=== PATIENT | male | born 1955 | race Caucasian/White ===

== ENCOUNTER 2020-02-28 14:32 | Emergency (ER) | payer OTHER, SELFPAY ==
[2020-02-28 14:37] VITALS: BP 117/89; PULSE 102; RESP 16; TEMP 36.8; O2SAT 100; BMI 27.9
[2020-02-28] MEDS: Lidocaine HCl 1 % MPF 5 ML VIAL SUBCUT ×3 (16:12→16:13)
--- NOTE | 2020-02-28 20:59 | ED.EXTPRO ---
HPI - Extremity Problem General Chief complaint: Extremity Injury, Upper Stated complaint: fell hand inj Time Seen by Provider: 02/28/20 15:28 History of Present Illness HPI Narrative: patient fell cutting his left hand, no other injury no other complaint, this happened 2 hours ago, pain is mild Related Data Previous Rx's Medication Instructions Recorded cyclobenzaprine 5 mg PO TID PRN #14 tab 02/28/20 Allergies Allergy/AdvReac Type Severity Reaction Status Date / Time No Known Allergies Allergy Verified 02/28/20 16:11 [No Known Allergies*] Review of Systems Review of Systems: there is no numbness weakness or paresthesias, there is no head injury no neck injury no head pain no neck pain PMFSH Past Medical History Source: nursing notes reviewed Medical History (Updated 02/28/20 @ 17:09 by KULDEEP Goodson) Back pain with history of spinal surgery High cholesterol Surgical History (Updated 02/28/20 @ 14:40 by Teresita Aguilar RN) Previous back surgery Social History Social History Advance Directives: No Advance Directives Information Provided: Yes Physical Exam Vital Signs and I&O and Narrative: Vital Signs and I&O: Vital Signs Temp 98.3 F 02/28/20 14:37 Pulse 102 H 02/28/20 14:37 Resp 16 02/28/20 14:37 BP 117/89 02/28/20 14:37 Pulse Ox 100 02/28/20 14:37 Intake & Output 02/28/20 02/28/20 02/29/20 06:59 18:59 06:59 Weight 88.451 kg Body Mass Index 27.9 general appearance is comfortable no distress, A&O x3, neck supple nontender respiratory no respiratory distress extremity exam the left ulnar aspect lateral aspect of the hand has a subcutaneous 3 cm laceration, there is full range of motion in all fingers and the hand, tendon function is intact as well as neurovascular, no swelling no deformities Other extremities are normal Neuro was a and O x3, no numbness no weakness Course Course Course Narrative: procedure note for left hand laceration that is 3 cm subcutaneous Cleansed and irrigated thoroughly with normal saline No foreign bodies were seen Anesthesia was 8 cc of 1% lidocaine The cut was approximated with a mixture of 4-0 and 5 0 sutures there were 4 4-0 sutures placed and there were 5 5.0 sutures placed The cut was well approximated with no complications and no bleeding Discharge Plan Discharge Clinical Impression: Laceration Laceration of hand Qualifiers: Encounter type: initial encounter Foreign body presence: unspecified Laterality: left Qualified Code(s): S61.412A - Laceration without foreign body of left hand, initial encounter Patient Disposition: Home, Self-Care Additional Instructions: stitches out 10-14 days Return any time for redness swelling fever red stripe up arm, any sign of infection, any concerns You got a tetanus shot Prescriptions: New cyclobenzaprine 5 mg tablet 5 mg PO TID PRN (Reason: muscle spasm) Qty: 14 RF: 0 Interventions: ED Discharge Assessment Last Done: 02/28/20 17:21 Discharge Date/Time: 02/28/20 17:23
== END 2020-02-28 17:23 | disposition home or self-care (01) ==
PROVIDERS: Emergency Provider Internal Medicine; PCP Family Medicine
DX: S61.412A Laceration without foreign body of left hand, initial encounter (principal); S60.512A Abrasion of left hand, initial encounter; M79.642 Pain in left hand; W26.9XXA Contact with unspecified sharp object(s), initial encounter; Y93.9 Activity, unspecified; Y92.009 Unspecified place in unspecified non-institutional (private) residence as the place of occurrence of the external cause; Z23 Encounter for immunization
CPT/HCPCS: 12002; 90471; 90700; 90715; 99283; 99284

== ENCOUNTER 2020-09-09 07:00 | Outpatient (REF) | payer MEDICARE, SELFPAY ==
[2020-09-09 08:32] LABS: Alanine Aminotransferase 19 U/L (0-40); Anion Gap 16 (12-20); Blood Urea Nitrogen 10 mg/dL (9-16); Carbon Dioxide 25 mmol/L (22-29); Chloride 102 mmol/L (96-108); Cholesterol 164 mg/dL; Estimated Glomerular Filt Rate > 60; Glucose Fasting 107 mg/dL (60-99); HDL Cholesterol 45 mg/dL; LDL Cholesterol Calculated 97 mg/dl; Potassium 4.2 mmol/L (3.3-5.1); Sodium 139 mmol/L (135-145); Triglycerides 113 mg/dL
== END 2020-09-09 07:01 | disposition home or self-care (01) ==
LOC: HO.LAB 07:00
PROVIDERS: PCP Family Medicine; Visit Provider Family Medicine
DX: E78.00 Pure hypercholesterolemia, unspecified (principal); I10 Essential (primary) hypertension; Z83.3 Family history of diabetes mellitus
CPT/HCPCS: 36415; 80051; 80061; 82550; 82565; 82947; 84460; 84520

== ENCOUNTER 2020-12-08 07:02 | Outpatient (REF) | payer MEDICARE, SELFPAY ==
[2020-12-08 09:13] LABS: Prostate Specific Antigen < 0.05 ng/mL (<0.05-4.0)
== END 2020-12-08 07:03 | disposition home or self-care (01) ==
LOC: HO.LAB 07:02
PROVIDERS: Absent Provider Urology; PCP Family Medicine; Visit Provider Family Medicine
DX: C61 Malignant neoplasm of prostate (principal)
CPT/HCPCS: 36415; 84153

== ENCOUNTER 2021-02-23 07:21 | Outpatient (REF) | payer MEDICARE, SELFPAY ==
[2021-02-23 08:17] LABS: Anion Gap 11 (12-20); Blood Urea Nitrogen 10 mg/dL (9-16); Carbon Dioxide 25 mmol/L (22-29); Chloride 105 mmol/L (96-108); Cholesterol 147 mg/dL; Estimated Glomerular Filt Rate > 60; HDL Cholesterol 48 mg/dL; LDL Cholesterol Calculated 81 mg/dl; Potassium 4.1 mmol/L (3.3-5.1); Sodium 137 mmol/L (135-145); Triglycerides 92 mg/dL
== END 2021-02-23 07:22 | disposition home or self-care (01) ==
LOC: HO.LAB 07:21
PROVIDERS: PCP Family Medicine; Visit Provider Family Medicine
DX: I10 Essential (primary) hypertension (principal); E78.00 Pure hypercholesterolemia, unspecified
CPT/HCPCS: 36415; 80051; 80061; 82565; 84520

== ENCOUNTER → 2021-04-12 08:49 | Outpatient (REF) | payer MEDICARE, SELFPAY ==
--- NOTE | 2021-04-12 09:00 | ECG_ITS ---
Test Reason : f34.1 Blood Pressure : / mmHG Vent. Rate : 076 BPM Atrial Rate : 076 BPM P-R Int : 184 ms QRS Dur : 098 ms QT Int : 394 ms P-R-T Axes : 072 068 069 degrees QTc Int : 443 ms Sinus rhythm with occasional Premature ventricular complexes Low voltage QRS Borderline ECG When compared with ECG of 14-MAY-2016 20:13, Premature ventricular complexes are now Present Heart rate has decreased Referred By: Twila Keller Electronically Signed By:JAMEY VOGEL MD
== END ==
LOC: HO.CARD 08:49
PROVIDERS: PCP Family Medicine; Visit Provider Psychiatry & Neurology Psychiatry
DX: F34.1 Dysthymic disorder (principal)
CPT/HCPCS: 93005

== ENCOUNTER 2021-06-17 09:08 | Outpatient (REF) | payer MEDICARE, SELFPAY ==
[2021-06-17 10:42] LABS: Prostate Specific Antigen < 0.05 ng/mL (<0.05-4.0)
== END 2021-06-17 09:09 | disposition home or self-care (01) ==
LOC: HO.LAB 09:08
PROVIDERS: PCP Family Medicine; Visit Provider Urology
DX: R97.20 Elevated prostate specific antigen [PSA] (principal); Z12.5 Encounter for screening for malignant neoplasm of prostate
CPT/HCPCS: 36415; 84153

== ENCOUNTER → 2021-07-06 11:10 | Outpatient (BNVA) | payer MEDICARE, SELFPAY | PROVIDERS: PCP Family Medicine; Visit Provider Urology | DX: N40.0 Benign prostatic hyperplasia without lower urinary tract symptoms (principal); N52.01 Erectile dysfunction due to arterial insufficiency; C61 Malignant neoplasm of prostate | CPT/HCPCS: 51798; 99212 ==

== ENCOUNTER 2021-08-23 07:09 | Outpatient (REF) | payer MEDICARE, SELFPAY ==
[2021-08-23 09:02] LABS: Alanine Aminotransferase 23 U/L (0-40); Anion Gap 14 (12-20); Blood Urea Nitrogen 11 mg/dL (9-16); Carbon Dioxide 25 mmol/L (22-29); Chloride 106 mmol/L (96-108); Estimated Glomerular Filt Rate > 60; Potassium 4.5 mmol/L (3.3-5.1); Sodium 140 mmol/L (135-145)
[2021-08-23 09:12] LABS: Free T4 (Free Thyroxine) 0.78 ng/dL (0.71-1.85)
== END 2021-08-23 07:10 | disposition home or self-care (01) ==
LOC: HO.LAB 07:09
PROVIDERS: PCP Family Medicine; Visit Provider Family Medicine
DX: I10 Essential (primary) hypertension (principal); E78.00 Pure hypercholesterolemia, unspecified; R00.0 Tachycardia, unspecified; Z79.899 Other long term (current) drug therapy
CPT/HCPCS: 36415; 80051; 82550; 82565; 84439; 84443; 84460; 84520

== ENCOUNTER 2021-10-05 07:00 | Outpatient (REF) | payer MEDICARE, SELFPAY ==
[2021-10-05 07:25] LABS: MANUAL DIFF FLAG NO
[2021-10-05 07:37] LABS: Basophils Absolute Auto 0.1 X10*3/uL (0.0-0.2); Basophils Percent Auto 0.8 % (0-2); Eosinophils Absolute Auto 0.4 X10*3/uL (0.0-0.4); Eosinophils Percent Auto 6.4 % (0-4); Hematocrit 43.3 % (42.0-52.0); Hemoglobin 14.3 g/dl (14.0-18.0); Imm Gran Abs Auto 0.03 X10*3/uL (0.00-0.03); Imm Gran Pct Auto 0.5 % (0.0-0.4); Lymphocytes Absolute Auto 1.5 X10*3/uL (1.2-4.9); Lymphocytes Percent Auto 23.5 % (20-40); Mean Corpuscular Hemoglobin 30.4 pg (27.0-33.0); Mean Corpuscular Volume 92.1 fL (80.0-98.0); Mean Platelet Volume 8.9 fL (9.4-12.4); Monocytes Absolute Auto 0.8 X10*3/uL (0.1-1.2); Neutrophils Absolute Auto 3.7 x10*3/uL (2.0-8.3); Neutrophils Percent Auto 56.8 % (45-73); Platelet Count 278 X10*3/uL (160-400); White Blood Count 6.5 X10*3/uL (4.8-10.8)
[2021-10-05 07:49] LABS: Estimated Average Glucose 117 mg/dL; Hemoglobin A1c % 5.7 %
[2021-10-05 08:01] LABS: Alanine Aminotransferase 23 U/L (0-40); Albumin Level 4.2 g/dL (3.5-5.0); Alkaline Phosphatase 75 U/L (39-117); Aspartate Amino Transferase 22 U/L (5-37); Bilirubin Direct < 0.2 mg/dL (0.0-0.5); Bilirubin Total 0.3 mg/dL (0.0-1.0); Glucose Fasting 109 mg/dL (60-99); Total Protein 6.4 g/dL (6.5-8.0)
[2021-10-05 08:24] LABS: Free T4 (Free Thyroxine) 0.73 ng/dL (0.71-1.85); Thyroid Stimulating Hormone 1.88 uIU/mL (0.32-4.0)
[2021-10-06 23:50] LABS: Triiodothyronine T3 Total 79 ng/dL (76-181)
== END 2021-10-05 07:01 | disposition home or self-care (01) ==
LOC: HO.LAB 07:00
PROVIDERS: PCP Family Medicine; Visit Provider Family Medicine
DX: R63.5 Abnormal weight gain (principal); R53.83 Other fatigue; I10 Essential (primary) hypertension
CPT/HCPCS: 36415; 80076; 82947; 83036; 84439; 84443; 84480; 85025

== ENCOUNTER 2021-12-28 07:12 | Outpatient (REF) | payer MEDICARE, SELFPAY ==
[2021-12-28 08:04] LABS: Prostate Specific Antigen 0.05 ng/mL (<0.05-4.0)
== END 2021-12-28 07:13 | disposition home or self-care (01) ==
LOC: HO.LAB 07:12
PROVIDERS: PCP Family Medicine; Visit Provider Urology
DX: Z12.5 Encounter for screening for malignant neoplasm of prostate (principal); C61 Malignant neoplasm of prostate
CPT/HCPCS: 36415; 84153

== ENCOUNTER → 2022-01-04 08:14 | Outpatient (BNVA) | payer MEDICARE, SELFPAY | PROVIDERS: PCP Family Medicine; Visit Provider Urology | DX: C61 Malignant neoplasm of prostate (principal); N52.01 Erectile dysfunction due to arterial insufficiency | CPT/HCPCS: 51798; 99212 ==

== ENCOUNTER 2022-02-14 07:04 | Outpatient (REF) | payer MEDICARE, SELFPAY ==
[2022-02-14 07:12] LABS: MANUAL DIFF FLAG NO
[2022-02-14 07:32] LABS: Basophils Absolute Auto 0.1 X10*3/uL (0.0-0.2); Basophils Percent Auto 0.4 % (0-2); Eosinophils Absolute Auto 0.4 X10*3/uL (0.0-0.4); Eosinophils Percent Auto 3.2 % (0-4); Hematocrit 43.8 % (42.0-52.0); Hemoglobin 15.1 g/dl (14.0-18.0); Imm Gran Abs Auto 0.06 X10*3/uL (0.00-0.03); Imm Gran Pct Auto 0.5 % (0.0-0.4); Lymphocytes Absolute Auto 1.4 X10*3/uL (1.2-4.9); Lymphocytes Percent Auto 11.3 % (20-40); Mean Corpuscular HGB Conc 34.5 g/dl (31.0-36.0); Mean Corpuscular Hemoglobin 32.1 pg (27.0-33.0); Mean Corpuscular Volume 93.2 fL (80.0-98.0); Mean Platelet Volume 9.3 fL (9.4-12.4); Monocytes Absolute Auto 0.9 X10*3/uL (0.1-1.2); Monocytes Percent Auto 7.1 % (2-11); Neutrophils Absolute Auto 9.9 x10*3/uL (2.0-8.3); Neutrophils Percent Auto 77.5 % (45-73); Platelet Count 275 X10*3/uL (160-400); Red Cell Distribution Width 12.8 % (11.0-16.0); White Blood Count 12.7 X10*3/uL (4.8-10.8)
[2022-02-14 07:56] LABS: Alanine Aminotransferase 20 U/L (0-40); Albumin Level 4.5 g/dL (3.5-5.0); Alkaline Phosphatase 75 U/L (39-117); Anion Gap 14 (12-20); Aspartate Amino Transferase 19 U/L (5-37); Bilirubin Total 0.7 mg/dL (0.0-1.0); Blood Urea Nitrogen 13 mg/dL (9-16); Calcium 9.3 mg/dL (8.4-10.2); Carbon Dioxide 23 mmol/L (22-29); Chloride 106 mmol/L (96-108); Estimated Glomerular Filt Rate > 60; Glucose Random 102 mg/dL (60-115); Potassium 4.4 mmol/L (3.3-5.1); Sodium 139 mmol/L (135-145); Total Protein 6.6 g/dL (6.5-8.0)
[2022-02-14 08:16] LABS: Free T4 (Free Thyroxine) 0.78 ng/dL (0.71-1.85)
== END 2022-02-14 07:05 | disposition home or self-care (01) ==
LOC: HO.LAB 07:04
PROVIDERS: PCP Student in an Organized Health Care Education/Training Program; Visit Provider Family Medicine
DX: R53.83 Other fatigue (principal)
CPT/HCPCS: 36415; 80053; 84439; 85025

== ENCOUNTER → 2022-03-14 10:50 | Outpatient (REF) | payer MEDICARE, SELFPAY ==
--- NOTE | 2022-03-14 10:55 | CA_ITS ---
Acquisition Time: 2022-03-14 11:01:53 Total Exercise Time: 00:09:00 Test Indications: Chest Pain Medications: Protocol: MILO Max HR: 153 BPM 99% of Pred: 154 BPM Max BP: 134/070 mmHG Max Work Load: 10.1 METS Exercise stress test with exercise 9 min of Milo protocol, achieving 94% MPHR, with mild sob, no chest discomfort, with isolated PVCs, with normotensive response to exercise, without EKG changes meeting criteria for ischemia. Echo images obtained by Tech at rest and immediately post peak exercise. Definity contrast used. Test reviewed with Dr Fernandez. Referred By: Reymundo Arana Overread By: HO BANKS
== END ==
LOC: HO.CARD 10:50
PROVIDERS: PCP Family Medicine; Visit Provider Family Medicine
DX: R07.9 Chest pain, unspecified (principal); I10 Essential (primary) hypertension; E78.00 Pure hypercholesterolemia, unspecified
CPT/HCPCS: 93350; Q9957

== ENCOUNTER 2022-05-02 07:23 | Outpatient (REF) | payer MEDICARE, SELFPAY ==
[2022-05-02 09:31] LABS: Prostate Specific Antigen < 0.10 ng/mL (<0.05-4.0)
== END 2022-05-02 07:24 | disposition home or self-care (01) ==
LOC: HO.LAB 07:23
PROVIDERS: PCP Family Medicine; Visit Provider Urology
DX: C61 Malignant neoplasm of prostate (principal)
CPT/HCPCS: 36415; 84153

== ENCOUNTER 2022-05-05 12:04 | Outpatient (REF) | payer MEDICARE, SELFPAY ==
--- NOTE | ~2022-05-05 | XR_ITS ---
EXAMINATION: XR SHOULDER, LEFT CLINICAL INFORMATION: Left shoulder pain for 3 months with limited range of motion COMPARISON: None TECHNIQUE: AP external rotation, Grashey, scapular Y, and axillary views of the left shoulder. FINDINGS: The bones and soft tissues are normal. No fracture. Glenohumeral and acromioclavicular alignment is anatomic with normal joint space. No abnormal soft tissue calcifications. XR/XR shoulder LT min 2V IMPRESSION: Unremarkable left shoulder exam
== END 2022-05-05 12:05 | disposition home or self-care (01) ==
LOC: HO.XRAY 12:04
PROVIDERS: PCP Family Medicine; Visit Provider Family Medicine
DX: M25.512 Pain in left shoulder (principal)
CPT/HCPCS: 73030

== ENCOUNTER → 2022-05-06 08:47 | Outpatient (BNVA) | payer MEDICARE, SELFPAY | PROVIDERS: PCP Family Medicine; Visit Provider Urology | DX: N52.01 Erectile dysfunction due to arterial insufficiency (principal); C61 Malignant neoplasm of prostate | CPT/HCPCS: 99212 ==

== ENCOUNTER 2022-05-12 18:56 | Outpatient (REF) | payer MEDICARE, SELFPAY ==
--- NOTE | ~2022-05-12 | MR_ITS ---
MR CERVICAL SPINE WITHOUT IV CONTRAST CLINICAL INFORMATION: Cervical arthritis. Left arm radiculopathy. COMPARISON: Cervical spine MRI 12/19/2019. TECHNIQUE: MRI of the cervical spine was obtained using routine sequences without contrast. FINDINGS: Straightening of the cervical lordosis. There is moderate to severe disc volume loss at C3-C4, C4-C5, C5-C6, C6-C7, and C7-T1 which is all progressed. Multilevel endplate osteophytes. Craniocervical junction is unremarkable. There Modic type I endplate signal changes at C3-C4, C4-C5, and C7-T1. There are no acute fractures. Cervical arterial flow voids are maintained. There are no cord signal changes. There are no significant extraspinal soft tissue findings. C2-C3: Disc osteophyte and ligamentum flavum thickening mildly narrow the central canal. Advanced uncovertebral joint hypertrophy and hypertrophic facet arthropathy result in similar moderate bilateral foraminal stenosis. C3-C4: Anterior subluxation. Disc osteophyte and ligamentum flavum thickening result in similar moderate to severe central canal stenosis. Advanced uncovertebral joint hypertrophy and hypertrophic facet arthropathy result in similar severe bilateral foraminal stenosis. C4-C5: Disc osteophyte and ligamentum flavum thickening result in similar moderate to severe central canal stenosis. Advanced uncovertebral joint hypertrophy and hypertrophic facet arthropathy result in similar severe left and moderate right foraminal stenosis. C5-C6: Disc osteophyte and ligamentum flavum thickening result in similar severe central canal stenosis. Advanced uncovertebral joint hypertrophy and hypertrophic facet arthropathy result in severe bilateral foraminal stenosis. C6-C7: Disc osteophyte eccentric to the left and ligamentum flavum thickening result in similar severe central canal stenosis. Advanced uncovertebral joint hypertrophy and hypertrophic facet arthropathy result in similar severe bilateral foraminal stenosis. C7-T1: Disc osteophyte mildly narrows the central canal. Advanced uncovertebral joint hypertrophy and hypertrophic facet arthropathy result in stable severe left and mild to moderate right foraminal stenosis. MR/MR cervical spine wo con IMPRESSION: Stable appearing advanced multilevel cervical spondylosis with advanced spondylitic changes resulting in unchanged moderate to severe central canal stenosis at C3-C4 and C4-C5 as well as severe central canal stenosis at C5-C6 and C6-C7 with mass effect on the cervical spinal cord at all these levels. Advanced spondylitic changes also result in similar varying degrees of moderate to severe foraminal stenosis throughout the cervical spine as discussed above. Multilevel degenerative endplate signal changes, greatest at C7-T1 where there are Modic type I endplate signal changes.
== END 2022-05-12 18:57 | disposition home or self-care (01) ==
LOC: HO.MRI 18:56
PROVIDERS: Visit Provider Family Medicine
DX: M46.92 Unspecified inflammatory spondylopathy, cervical region (principal); M79.622 Pain in left upper arm
CPT/HCPCS: 72141

== ENCOUNTER 2022-09-20 07:10 | Outpatient (REF) | payer MEDICARE, SELFPAY ==
[2022-09-20 07:40] LABS: Alanine Aminotransferase 28 U/L (0-40); Anion Gap 12 (12-20); Aspartate Amino Transferase 29 U/L (5-37); Blood Urea Nitrogen 8 mg/dL (9-16); Carbon Dioxide 21 mmol/L (22-29); Chloride 110 mmol/L (96-108); Estimated Glomerular Filt Rate > 60; Potassium 4.4 mmol/L (3.3-5.1); Sodium 139 mmol/L (135-145)
== END 2022-09-20 07:11 | disposition home or self-care (01) ==
LOC: HO.LAB 07:10
PROVIDERS: PCP Family Medicine; Visit Provider Family Medicine
DX: I10 Essential (primary) hypertension (principal); E78.00 Pure hypercholesterolemia, unspecified; Z79.899 Other long term (current) drug therapy
CPT/HCPCS: 36415; 80051; 82550; 82565; 84450; 84460; 84520

== ENCOUNTER 2022-11-01 06:54 | Outpatient (REF) | payer MEDICARE, SELFPAY ==
[2022-11-01 08:17] LABS: Prostate Specific Antigen 0.12 ng/mL (<0.05-4.0)
== END 2022-11-01 06:55 | disposition home or self-care (01) ==
LOC: HO.LAB 06:54
PROVIDERS: PCP Family Medicine; Visit Provider Urology
DX: Z12.5 Encounter for screening for malignant neoplasm of prostate (principal); C61 Malignant neoplasm of prostate
CPT/HCPCS: 36415; 84153

== ENCOUNTER → 2022-11-04 08:53 | Outpatient (BNVA) | payer MEDICARE, SELFPAY | PROVIDERS: PCP Family Medicine; Visit Provider Urology | DX: C61 Malignant neoplasm of prostate (principal); R97.21 Rising PSA following treatment for malignant neoplasm of prostate | CPT/HCPCS: 99212 ==

== ENCOUNTER 2022-12-23 09:39 | Outpatient (REF) | payer MEDICARE, SELFPAY ==
[2022-12-23 10:57] LABS: MANUAL DIFF FLAG NO
[2022-12-23 11:01] LABS: Basophils Percent Auto 0.6 % (0-2); Eosinophils Absolute Auto 0.3 X10*3/uL (0.0-0.4); Eosinophils Percent Auto 4.8 % (0-4); Hematocrit 44.1 % (42.0-52.0); Hemoglobin 14.7 g/dl (14.0-18.0); Imm Gran Abs Auto 0.02 X10*3/uL (0.00-0.03); Imm Gran Pct Auto 0.3 % (0.0-0.4); Lymphocytes Absolute Auto 1.5 X10*3/uL (1.2-4.9); Lymphocytes Percent Auto 22.5 % (20-40); Mean Corpuscular HGB Conc 33.3 g/dl (31.0-36.0); Mean Corpuscular Hemoglobin 30.8 pg (27.0-33.0); Mean Corpuscular Volume 92.3 fL (80.0-98.0); Mean Platelet Volume 9.1 fL (9.4-12.4); Monocytes Absolute Auto 0.7 X10*3/uL (0.1-1.2); Monocytes Percent Auto 10.7 % (2-11); Neutrophils Percent Auto 61.1 % (45-73); Platelet Count 300 X10*3/uL (160-400); Red Blood Count 4.78 X10*6/uL (4.60-5.80); Red Cell Distribution Width 12.6 % (11.0-16.0); White Blood Count 6.6 X10*3/uL (4.8-10.8)
[2022-12-23 11:39] LABS: Erythrocyte Sedimentation Rate 2 MM/HR (0-15)
[2022-12-23 22:31] LABS: Alanine Aminotransferase 25 U/L (0-40); Albumin Level 4.3 g/dL (3.5-5.0); Alkaline Phosphatase 75 U/L (39-117); Anion Gap 14 (12-20); Aspartate Amino Transferase 30 U/L (5-37); Bilirubin Total 0.4 mg/dL (0.0-1.0); Blood Urea Nitrogen 11 mg/dL (9-16); Calcium 8.9 mg/dL (8.4-10.2); Carbon Dioxide 21 mmol/L (22-29); Chloride 107 mmol/L (96-108); Estimated Glomerular Filt Rate > 60; Free T4 (Free Thyroxine) 0.71 ng/dL (0.71-1.85); Glucose Random 104 mg/dL (60-115); Potassium 4.4 mmol/L (3.3-5.1); Sodium 138 mmol/L (135-145); Thyroid Stimulating Hormone 0.98 uIU/mL (0.32-4.0); Total Protein 6.7 g/dL (6.5-8.0)
== END 2022-12-23 09:40 | disposition home or self-care (01) ==
LOC: HO.10HDL 09:39
PROVIDERS: Visit Provider Family Medicine
DX: R53.83 Other fatigue (principal); E78.00 Pure hypercholesterolemia, unspecified; Z79.899 Other long term (current) drug therapy
CPT/HCPCS: 36415; 80053; 82550; 84439; 84443; 85025; 85652

== ENCOUNTER 2023-01-18 08:33 | Outpatient (REF) | payer MEDICARE, SELFPAY ==
--- NOTE | ~2023-01-18 | US_ITS ---
EXAMINATION: US ABDOMEN COMPLETE CLINICAL INFORMATION: Left upper quadrant and flank pain. Evaluate for nephrolithiasis. COMPARISON: CT abdomen and pelvis 02/17/2018. Ultrasound abdomen 08/23/2013. TECHNIQUE: Real-time imaging of the abdominal viscera. FINDINGS: PANCREAS: Normal. ABDOMINAL AORTA: The proximal, mid, and distal segments are normal in caliber. INFERIOR VENA CAVA: Visualized portions are normal. LIVER: Normal. The liver is normal in size. The liver contour is normal. Parenchymal echogenicity is normal. No focal hepatic lesion. There is no intrahepatic biliary duct dilatation seen. GALLBLADDER: Normal. The gallbladder is physiologically distended without evidence of stones, sludge, polyps, wall thickening or pericholecystic fluid. COMMON BILE DUCT: Normal in caliber measuring 0.4 cm in diameter. RIGHT KIDNEY: Normal. No hydronephrosis. No renal calculi or focal parenchymal lesions. The kidney measures 11.3 cm in maximum dimension. LEFT KIDNEY: Normal. No hydronephrosis. No renal calculi or focal parenchymal lesions. The kidney measures 11.6 cm in maximum dimension. SPLEEN: Normal. The spleen measures 10.6 cm in maximum dimension. FREE FLUID: None. US/US abdomen complete IMPRESSION: Unremarkable abdomen ultrasound examination.
== END 2023-01-18 08:34 | disposition home or self-care (01) ==
LOC: HO.US 08:33
PROVIDERS: PCP Family Medicine; Visit Provider Family Medicine
DX: R10.12 Left upper quadrant pain (principal); M54.50 Low back pain, unspecified
CPT/HCPCS: 76700

== ENCOUNTER 2023-02-22 07:17 | Outpatient (REF) | payer MEDICARE, SELFPAY ==
[2023-02-22 08:23] LABS: Prostate Specific Antigen 0.17 ng/mL (<0.05-4.0)
== END 2023-02-22 07:18 | disposition home or self-care (01) ==
LOC: HO.LAB 07:17
PROVIDERS: PCP Family Medicine; Visit Provider Urology
DX: C61 Malignant neoplasm of prostate (principal); Z12.5 Encounter for screening for malignant neoplasm of prostate
CPT/HCPCS: 36415; 84153

== ENCOUNTER 2023-03-10 08:50 | Outpatient (AMB) | payer MEDICARE, SELFPAY ==
--- NOTE | 2023-03-10 08:50 | MHC.OFFVIS ---
Intake Intake Visit Reasons: 4m/PSA(set) Intake Note: Patient is Present for Telephone Follow Up PSA Urology Med: None Antibiotic Allergy: None Blood Thinner: None Pharamcy: [employer] Required: No Allergies No Known Allergies [No Known Allergies*] Allergy (Verified 03/10/23 08:53) Medication List - Last Reconciled 03/10/23 by Mckinley Siddiqui MD atorvastatin 20 mg PO BEDTIME bupropion HCl 300 mg PO QAM cyclobenzaprine 5 mg PO TID PRN diltiazem HCl ER 120 mg PO DAILY escitalopram oxalate 20 mg PO DAILY gabapentin 300 mg PO TID lorazepam 1 mg PO TID quetiapine 300 mg PO BEDTIME zolpidem ER 12.5 mg PO BEDTIME HPI HPI Comments History of Present Illness Details Rianna is a pleasant male. He is a patient Dr. Arana. He is seen for the following urologic conditions - prostate cancer - erectile dysfunction Telemedicine Evaluation 15 min Consultation [facility] Sep[facility] Video attempted Question of PSA recurrence Discussed potential pathway should further testing confirm PSA recurrence Recommend PET-CT Prostate cancer [place] 3 + [address] [facility] [address] Pruitt Original biopsy [place] 3 + 4 with 3 biopsies on left 90% volume - - pT1c, Grade Group 3 Initial therapy robotic prostatectomy [facility] 2018 PSA 06/12 <0.1, 01/10 0.05, 05/12 <0.1, 11/11 0.12, 03/13 0.17 Erectile dysfunction Post prostatectomy Small amount of activity Trial daily Cialis to maximize potential recovery No current partner PFSH Medical History Depression Anxiety Nocturia Hyperlipidemia GERD (gastroesophageal reflux disease) Benign prostatic hyperplasia with lower urinary tract symptoms Back pain with history of spinal surgery High cholesterol Surgical History History of surgery Previous back surgery Review of Systems Const All systems reviewed & are unremarkable except as noted in HPI and below Reports no additional complaints Resp Reports no additional complaints GI Reports no additional complaints Reports as per HPI Musc Reports no additional complaints Physical Exam Telemedicine evaluation Appropriate responses Regular breathing rate and rhythm HEENT Head: Yes normal to inspection Ears: hearing grossly normal bilaterally Eyes General: appearance normal, both eyes and all related structures Neck Neck: Yes normal visual inspection Chest Chest palpation & inspection: normal inspection of the chest Resp Effort & Inspection: normal respiratory effort and able to speak in complete sentences Assessment & Plan Assessment & Plan (1) Rising PSA following treatment for malignant neoplasm of prostate: Code(s): R97.21 - Rising PSA following treatment for malignant neoplasm of prostate Plan PSA recurrence Organized staging Will possibly need salvage radiation 3-4 week follow-up to assess PET-CT Orders: Orders Creatinine Today R39.15 - Urgency of urination, R97.21 - Rising PSA following treatment for malignant neoplasm of prostate Blood Urea Nitrogen Today R39.15 - Urgency of urination, R97.21 - Rising PSA following treatment for malignant neoplasm of prostate PET CT fusion skull to thigh Today C61 - Malignant neoplasm of prostate, R97.21 - Rising PSA following treatment for malignant neoplasm of prostate Patient Instructions: Imaging studies, laboratory and physical exam results were discussed and reviewed in detail. No major barriers to patient understanding were identified. An opportunity to ask questions regarding the treatment plan was provided. All questions were answered. The patient expressed understanding and agreement with the above treatment plan. The patient is aware they should contact our office by phone for worsening of their current condition or the appearance of new urologic symptoms. Compliance is encouraged with any medications and followup testing that is ordered. It is a privilege to participate in the urologic care of your patient. If you have any questions or concerns regarding treatment for the above conditions, or other urologic issues, please do not hesitate to contact me. The office telephone contact is [phone]. This note is constructed using voice recognition software. While every effort has been made to ensure accuracy able bodied watchman errors may have been included. Yours sincerely, Dr Mckinley Siddiqui MD, [facility] - Urology Providers of Expert, Compassionate Care for the Genitourinary System Telehealth Telehealth Location of provider rendering services: practice address Location of patient: address on file Patient Identification confirmed using: Name, : Yes Telehealth method: video Patient verbally consented to treatment: Yes Patient verbally consented to billing insurance company: Yes Patient informed of any privacy concerns related to visit: Yes Coding Level of Care Code Tele Est Pt Level 3 (45742) Diagnoses Rising PSA following treatment for malignant neoplasm of prostate R97.21
== END 2023-03-10 09:35 | disposition home or self-care (01) ==
LOC: HO.HUSH 08:50
PROVIDERS: PCP Family Medicine; Visit Provider Urology
DX: R97.21 Rising PSA following treatment for malignant neoplasm of prostate (principal)
CPT/HCPCS: 99213

== ENCOUNTER → 2023-03-10 08:50 | Outpatient (BNVA) | payer MEDICARE, SELFPAY | PROVIDERS: PCP Family Medicine; Visit Provider Urology ==

== ENCOUNTER 2023-04-19 07:16 | Outpatient (REF) | payer MEDICARE, SELFPAY | END 2023-04-19 07:17 | disposition home or self-care (01) | LOC: HO.LAB 07:16 | PROVIDERS: PCP Family Medicine; Visit Provider Family Medicine | DX: E78.00 Pure hypercholesterolemia, unspecified (principal); Z79.899 Other long term (current) drug therapy | CPT/HCPCS: 36415; 82550 ==

== ENCOUNTER 2023-05-04 12:49 | Outpatient (AMB) | payer MEDICARE, SELFPAY ==
--- NOTE | 2023-05-04 13:06 | A.OFFVIS_ITS ---
Intake Intake Visit Reasons: 4w/Pet-CT Intake Note: Patient is Present for Follow Up PET CT Urology Medication: None Antibiotic Allergies: None Allergies No Known Allergies [No Known Allergies*] Allergy (Verified 03/10/23 08:53) Medication List - Last Reconciled 05/04/23 by Mckinley Siddiqui MD atorvastatin 20 mg PO BEDTIME bupropion HCl 300 mg PO QAM cyclobenzaprine 5 mg PO TID PRN diltiazem HCl ER 120 mg PO DAILY escitalopram oxalate 20 mg PO DAILY gabapentin 300 mg PO TID lorazepam 1 mg PO TID quetiapine 300 mg PO BEDTIME zolpidem ER 12.5 mg PO BEDTIME HPI HPI Comments History of Present Illness Details Rianna is a pleasant male. He is a patient Dr. Arana. He is seen for the following urologic conditions - prostate cancer - erectile dysfunction Discussed imaging findings At this point will continue to follow PSA every 4 months Understands may have salvage radiation when PSA between 0.2 and 0.4 Imaging - 04/13 PET-CT - no evidence of recurren ce Prostate cancer [place] 3 + 4 robotic prostatectomy [facility] [address] Pruitt Original biopsy [place] 3 + 4 with 3 biopsies on left 90% volume - - pT1c, Grade Group 3 Initial therapy robotic prostatectomy [facility] 2018 PSA 06/12 <0.1, 01/10 0.05, 05/12 <0.1, 11/11 0.12, 03/13 0.17 Erectile dysfunction Post prostatectomy Small amount of activity Trial daily Cialis to maximize potential recovery No current partner PFSH Medical History Depression Anxiety Nocturia Hyperlipidemia GERD (gastroesophageal reflux disease) Benign prostatic hyperplasia with lower urinary tract symptoms Back pain with history of spinal surgery High cholesterol Surgical History History of surgery Previous back surgery Review of Systems Const Denies chills and Denies fever(s) Card Reports no additional complaints and Denies syncope Resp Denies cough GI Denies abdominal pain and Denies heartburn Reports as per HPI and Denies change in libido Neuro Denies syncope Psych Denies change in libido Endo Denies change in libido Physical Exam Const General: cooperative, healthy appearing, comfortable and no acute distress Orientation/consciousness: patient oriented x3 HEENT Face and sinus: Yes normal facial exam Mouth: moist mucous membranes Neck Neck: Yes normal visual inspection, Yes full ROM and Yes trachea midline Chest Chest palpation & inspection: normal inspection of the chest Resp Effort & Inspection: normal respiratory effort, able to speak in complete sentences and no respiratory distress GI Inspection: Yes normal to inspection Back/Spine/Pelvis Cervical Spine: normal cervical lordosis Thoracic/Lumbar Spine: thoracic and lumbar spine normal to inspection Skin General skin exam: no rashes or lesions noted Neuro General: patient oriented x3, gait normal, tone normal and moves all extremities Extrem General: Yes normal to inspection and Yes capillary refill normal Assessment & Plan Assessment & Plan (1) Rising PSA following treatment for malignant neoplasm of prostate: Code(s): R97.21 - Rising PSA following treatment for malignant neoplasm of prostate Plan Four month follow-up PSA Orders: Orders Prostate Specific Antigen 4 Months R97.21 - Rising PSA following treatment for malignant neoplasm of prostate Patient Instructions: Imaging studies, laboratory and physical exam results were discussed and reviewed in detail. No major barriers to patient understanding were identified. An opportunity to ask questions regarding the treatment plan was provided. All questions were answered. The patient expressed understanding and agreement with the above treatment plan. The patient is aware they should contact our office by phone for worsening of their current condition or the appearance of new urologic symptoms. Compliance is encouraged with any medications and followup testing that is ordered. It is a privilege to participate in the urologic care of your patient. If you have any questions or concerns regarding treatment for the above conditions, or other urologic issues, please do not hesitate to contact me. The office telephone contact is [phone]. This note is constructed using voice recognition software. While every effort has been made to ensure accuracy stripping machine operator errors may have been included. Yours sincerely, Dr Mckinley Siddiqui MD, [facility] - Urology Providers of Expert, Compassionate Care for the Genitourinary System Coding Level of Care Code Est Pt Level 3 (00739) Diagnoses Rising PSA following treatment for malignant neoplasm of prostate R97.21
== END 2023-05-04 13:18 | disposition home or self-care (01) ==
PROVIDERS: PCP Family Medicine; Visit Provider Urology
DX: R97.21 Rising PSA following treatment for malignant neoplasm of prostate (principal)
CPT/HCPCS: 99213

== ENCOUNTER → 2023-05-04 12:49 | Outpatient (BNVA) | payer MEDICARE, SELFPAY | PROVIDERS: PCP Family Medicine; Visit Provider Urology | DX: R97.21 Rising PSA following treatment for malignant neoplasm of prostate (principal) | CPT/HCPCS: 99212 ==

== ENCOUNTER 2023-08-09 07:02 | Outpatient (REF) | payer MEDICARE, SELFPAY ==
[2023-08-09 07:47] LABS: Anion Gap 12 (12-20); Blood Urea Nitrogen 7 mg/dL (9-16); Carbon Dioxide 26 mmol/L (22-29); Chloride 105 mmol/L (96-108); Estimated Glomerular Filt Rate > 60; Potassium 4.2 mmol/L (3.3-5.1); Sodium 139 mmol/L (135-145)
== END 2023-08-09 07:03 | disposition home or self-care (01) ==
LOC: HO.LAB 07:02
PROVIDERS: PCP Family Medicine; Visit Provider Family Medicine
DX: I10 Essential (primary) hypertension (principal); M79.10 Myalgia, unspecified site
CPT/HCPCS: 36415; 80051; 82550; 82565; 84520

== ENCOUNTER 2023-08-10 07:09 | Outpatient (REF) | payer MEDICARE, SELFPAY ==
[2023-08-16 14:19] LABS: Aldolase 7.2 U/L (<=8.1)
== END 2023-08-10 07:10 | disposition home or self-care (01) ==
LOC: HO.LAB 07:09
PROVIDERS: PCP Family Medicine; Visit Provider Family Medicine
DX: M79.10 Myalgia, unspecified site (principal); I10 Essential (primary) hypertension
CPT/HCPCS: 36415; 82085

== ENCOUNTER 2023-08-23 07:14 | Outpatient (REF) | payer MEDICARE, SELFPAY ==
[2023-08-23 09:14] LABS: Blood Urea Nitrogen 8 mg/dL (9-16); Estimated Glomerular Filt Rate > 60
== END 2023-08-23 07:15 | disposition home or self-care (01) ==
LOC: HO.LAB 07:14
PROVIDERS: PCP Family Medicine; Visit Provider Urology
DX: R39.15 Urgency of urination (principal); R97.21 Rising PSA following treatment for malignant neoplasm of prostate; Z12.5 Encounter for screening for malignant neoplasm of prostate
CPT/HCPCS: 36415; 82565; 84153; 84520

== ENCOUNTER 2023-08-29 10:17 | Outpatient (AMB) | payer MEDICARE, SELFPAY ==
--- NOTE | 2023-08-29 10:19 | MHC.OFFVIS ---
Intake Intake Visit Reasons: PSA Follow up(set)Confirmed Intake Note: Patient is Present for Telephone Follow Up For Urology Med: None Antibiotic Allergy: None Blood Thinner: None Allergies No Known Allergies [No Known Allergies*] Allergy (Verified 08/29/23 10:20) Medication List - Last Reconciled 08/29/23 by Mckinley Siddiqui MD atorvastatin 20 mg PO BEDTIME bupropion HCl XL 300 mg PO QAM cyclobenzaprine 5 mg PO TID PRN diltiazem HCl ER 120 mg PO DAILY escitalopram oxalate 20 mg PO DAILY gabapentin 300 mg PO TID lorazepam 1 mg PO TID quetiapine 300 mg PO BEDTIME zolpidem ER 12.5 mg PO BEDTIME HPI HPI Comments History of Present Illness Details Rianna is a pleasant male. He is a patient Dr. Arana. He is seen for the following urologic conditions - prostate cancer - delayed failure PSA rise - erectile dysfunction Telemedicine Evaluation 15 min Consultation [facility] Sep[facility] Video Continued slow rise in PSA to 0.2 Will refer to radiation oncology for assessment of salvage radiation Given [place] 3 + 4 disease would likely benefit short term GnRH manipulation Has window over next 6 months to initiate Imaging - 04/13 [facility] - PET-CT - no evidence of recurrence Prostate cancer [place] 3 + [address] [facility] [address] Pruitt Original biopsy [place] 3 + 4 with 3 biopsies on left 90% volume - - pT1c, Grade Group 3 Initial therapy robotic prostatectomy [facility] 2018 PSA 06/12 <0.1, 01/10 0.05, 05/12 <0.1, 11/11 0.12, 03/13 0.17, 09/12 0.2 Erectile dysfunction Post prostatectomy Small amount of activity Trial daily Cialis to maximize potential recovery No current partner PFSH Medical History Depression Anxiety Nocturia Hyperlipidemia GERD (gastroesophageal reflux disease) Benign prostatic hyperplasia with lower urinary tract symptoms Back pain with history of spinal surgery High cholesterol Surgical History History of surgery Previous back surgery Review of Systems Const All systems reviewed & are unremarkable except as noted in HPI and below Reports no additional complaints Resp Reports no additional complaints GI Reports no additional complaints Reports as per HPI Musc Reports no additional complaints Physical Exam Telemedicine evaluation Appropriate responses Regular breathing rate and rhythm HEENT Head: Yes normal to inspection Ears: hearing grossly normal bilaterally Eyes General: appearance normal, both eyes and all related structures Neck Neck: Yes normal visual inspection Chest Chest palpation & inspection: normal inspection of the chest Resp Effort & Inspection: normal respiratory effort and able to speak in complete sentences Assessment & Plan Assessment & Plan (1) Rising PSA following treatment for malignant neoplasm of prostate: Code(s): R97.21 - Rising PSA following treatment for malignant neoplasm of prostate (2) Prostate cancer: Comment: [address] [facility] Code(s): C61 - Malignant neoplasm of prostate Plan Refer radiation oncology with 6 week follow-up Orders: Referrals Radiation Oncology Referral R97.21 - Rising PSA following treatment for malignant neoplasm of prostate Patient Instructions: Imaging studies, laboratory and physical exam results were discussed and reviewed in detail. No major barriers to patient understanding were identified. An opportunity to ask questions regarding the treatment plan was provided. All questions were answered. The patient expressed understanding and agreement with the above treatment plan. The patient is aware they should contact our office by phone for worsening of their current condition or the appearance of new urologic symptoms. Compliance is encouraged with any medications and followup testing that is ordered. It is a privilege to participate in the urologic care of your patient. If you have any questions or concerns regarding treatment for the above conditions, or other urologic issues, please do not hesitate to contact me. The office telephone contact is [phone]. This note is constructed using voice recognition software. While every effort has been made to ensure accuracy shelf filler errors may have been included. Yours sincerely, Dr Mckinley Siddiqui MD, [facility] - Urology Providers of Expert, Compassionate Care for the Genitourinary System Telehealth Telehealth Location of provider rendering services: practice address Location of patient: address on file Patient Identification confirmed using: Name, : Yes Telehealth method: video Patient verbally consented to treatment: Yes Patient verbally consented to billing insurance company: Yes Patient informed of any privacy concerns related to visit: Yes Coding Level of Care Code Tele Est Pt Level 3 (44188) Diagnoses Rising PSA following treatment for malignant neoplasm of prostate R97.21 Prostate cancer C61
== END 2023-08-29 10:57 | disposition home or self-care (01) ==
LOC: HO.HUSH 10:17
PROVIDERS: PCP Family Medicine; Visit Provider Urology
DX: C61 Malignant neoplasm of prostate (principal); R97.21 Rising PSA following treatment for malignant neoplasm of prostate
CPT/HCPCS: 99213

== ENCOUNTER → 2023-08-29 10:17 | Outpatient (BNVA) | payer MEDICARE, SELFPAY | PROVIDERS: PCP Family Medicine; Visit Provider Urology ==

== ENCOUNTER 2023-10-10 11:31 | Outpatient (AMB) | payer MEDICARE, SELFPAY ==
--- NOTE | 2023-10-10 11:38 | A.OFFVIS_ITS ---
Intake Visit Reasons: 6w follow up(Radiation/Oncology) Allergies No Known Allergies [No Known Allergies*] Allergy (Verified 08/29/23 10:20) HPI Comments Details: Rianna is a pleasant male. He is a patient Dr. Arana. He is seen for the following urologic conditions - prostate cancer - delayed failure PSA rise - erectile dysfunction Telemedicine Evaluation 15 min Consultation DoximLikeAndy Sepideh Video Completed radiation oncology referral with Dr. Montes De Oca Plan for salvage external beam Will administer a single GnRH six-month depot Continued slow rise in PSA to 0.2 Given [place] 3 + 4 disease would likely benefit short term GnRH manipulation Imaging - 04/13 [facility] - PET-CT - no evidence of recurrence Prostate cancer [place] 3 + 4 robotic prostatectomy [facility] [address] Pruitt Original biopsy [place] 3 + 4 with 3 biopsies on left 90% volume - - pT1c, Grade Group 3 Initial therapy robotic prostatectomy [facility] 2018 PSA 06/12 <0.1, 01/10 0.05, 05/12 <0.1, 11/11 0.12, 03/13 0.17, 09/12 0.2 Imaging - 04/13 [facility] - PET-CT - no evidence of recurrence Erectile dysfunction Post prostatectomy Small amount of activity Trial daily Cialis to maximize potential recovery No current partner PFSH Medical History Depression Anxiety Nocturia Hyperlipidemia GERD (gastroesophageal reflux disease) Benign prostatic hyperplasia with lower urinary tract symptoms Back pain with history of spinal surgery High cholesterol Surgical History History of surgery Previous back surgery Review of Systems Const All systems reviewed & are unremarkable except as noted in HPI and below Reports no additional complaints Resp Reports no additional complaints GI Reports no additional complaints Reports as per HPI Musc Reports no additional complaints Physical Exam Telemedicine evaluation Appropriate responses Regular breathing rate and rhythm HEENT Head: Yes normal to inspection Ears: hearing grossly normal bilaterally Eyes General: appearance normal, both eyes and all related structures Neck Neck: Yes normal visual inspection Chest Chest palpation & inspection: normal inspection of the chest Resp Effort & Inspection: normal respiratory effort and able to speak in complete sentences Telehealth Telehealth Telehealth Platform: Education Everytime Location of provider rendering services: practice address Location of patient: address on file Patient Identification confirmed using: Name, : Yes Telehealth method: video Patient verbally consented to treatment: Yes Patient verbally consented to billing insurance company: Yes Patient informed of any privacy concerns related to visit: Yes Minutes spent on Phone/Video with Pt.: 15 Assessment & Plan Assessment & Plan (1) Rising PSA following treatment for malignant neoplasm of prostate: Code(s): R97.21 - Rising PSA following treatment for malignant neoplasm of prostate Category: Medical (2) Cancer of prostate with intermediate recurrence risk, stage T2B-C or [place] 7 or prostate-specific antigen (PSA) 10-20: Code(s): C61 - Malignant neoplasm of prostate Category: Medical Plan GnRH injection Three-month follow-up Patient Instructions: Imaging studies, laboratory and physical exam results were discussed and reviewed in detail. No major barriers to patient understanding were identified. An opportunity to ask questions regarding the treatment plan was provided. All questions were answered. The patient expressed understanding and agreement with the above treatment plan. The patient is aware they should contact our office by phone for worsening of their current condition or the appearance of new urologic symptoms. Compliance is encouraged with any medications and followup testing that is ordered. It is a privilege to participate in the urologic care of your patient. If you have any questions or concerns regarding treatment for the above conditions, or other urologic issues, please do not hesitate to contact me. The office telephone contact is [phone]. This note is constructed using voice recognition software. While every effort has been made to ensure accuracy tutoring manager errors may have been included. Yours sincerely, Dr Mckinley Siddiqui MD, CAMELIA [facility] - Urology Providers of Expert, Compassionate Care for the Genitourinary System Coding Level of Care Code Tele Est Pt Level 4 (31791) Complex EM visit Add On G2211 Diagnoses Rising PSA following treatment for malignant neoplasm of prostate R97.21 Cancer of prostate with intermediate recurrence risk, stage T2B-C or [place] 7 or prostate-specific antigen (PSA) 10-20 C61
== END 2023-10-10 12:08 | disposition home or self-care (01) ==
LOC: HO.HUSH 11:31
PROVIDERS: PCP Family Medicine; Visit Provider Urology
DX: R97.21 Rising PSA following treatment for malignant neoplasm of prostate (principal); C61 Malignant neoplasm of prostate
CPT/HCPCS: 99214; G2211

== ENCOUNTER → 2023-10-10 11:31 | Outpatient (BNVA) | payer MEDICARE, SELFPAY | PROVIDERS: PCP Family Medicine; Visit Provider Urology ==

== ENCOUNTER 2023-10-25 13:19 | Outpatient (AMB) | payer MEDICARE, SELFPAY ==
--- NOTE | 2023-10-25 13:50 | AM.OFFVISNUR ---
Intake Intake Visit Reasons: GnRH Allergies No Known Allergies [No Known Allergies*] Allergy (Verified 08/29/23 10:20) Office Meds Eligard (6 month) 45 mg (6 month) subcutaneous syringe Performing Provider: Mckinley Siddiqui MD [facility] Administered by: Dakota Hall LPN on 10/25/23 13:50 Dose Route Admin Location Dispensed Lot Number Expiration Date [facility] Director Of Rehabilitation And Wellness 45 mg subcut right arm 45 mg [id number] 01/20/25 64730-476-99 [employer]. Coding Assessment & Plan Assessment & Plan Orders: Orders AMB Leuprolide Injection - Practice Supplied Today C61 - Malignant neoplasm of prostate, R97.21 - Rising PSA following treatment for malignant neoplasm of prostate Medications: New Eligard (6 month) (leuprolide acetate (6 month)) 45 mg subcut ONCE 1 ea 0RF NS C61 - Malignant neoplasm of prostate, R97.21 - Rising PSA following treatment for malignant neoplasm of prostate
== END 2023-10-25 14:06 | disposition home or self-care (01) ==
PROVIDERS: PCP Family Medicine; Visit Provider Urology
DX: R97.21 Rising PSA following treatment for malignant neoplasm of prostate (principal); C61 Malignant neoplasm of prostate

== ENCOUNTER → 2023-10-25 13:19 | Outpatient (BNVA) | payer MEDICARE, SELFPAY | PROVIDERS: PCP Family Medicine; Visit Provider Urology | DX: C61 Malignant neoplasm of prostate (principal); R97.21 Rising PSA following treatment for malignant neoplasm of prostate | CPT/HCPCS: 96402; J9217 ==

== ENCOUNTER 2024-03-04 07:08 | Outpatient (REF) | payer MEDICARE, SELFPAY ==
[2024-03-04 08:18] LABS: Alanine Aminotransferase 33 U/L (0-40); Anion Gap 13 (12-20); Aspartate Amino Transferase 28 U/L (5-37); Blood Urea Nitrogen 10 mg/dL (9-16); Carbon Dioxide 27 mmol/L (22-29); Chloride 103 mmol/L (96-108); Estimated Glomerular Filt Rate > 60; Potassium 4.3 mmol/L (3.3-5.1); Sodium 139 mmol/L (135-145)
[2024-03-04 08:41] LABS: Prostate Specific Antigen < 0.10 ng/mL (<0.05-4.0)
== END 2024-03-04 07:09 | disposition home or self-care (01) ==
LOC: HO.LAB 07:08
PROVIDERS: Absent Provider Family Medicine; PCP Family Medicine; Visit Provider Urology
DX: R97.21 Rising PSA following treatment for malignant neoplasm of prostate (principal); I10 Essential (primary) hypertension; E78.00 Pure hypercholesterolemia, unspecified; Z12.5 Encounter for screening for malignant neoplasm of prostate
CPT/HCPCS: 36415; 80051; 82550; 82565; 84153; 84450; 84460; 84520

== ENCOUNTER 2024-03-14 13:45 | Outpatient (AMB) | payer MEDICARE, SELFPAY ==
--- NOTE | 2024-03-14 14:04 | MHC.OFFVIS ---
Intake Visit Reasons: 5M PSA(set) Intake Note: Patient is Present for Follow Up PSA Urology Medication:None Antibiotic Allergies: None Blood Thinners: None Recent PSA: 03/04/24- <0.10 Allergies No Known Allergies [No Known Allergies*] Allergy (Verified 08/29/23 10:20) Medication List - Last Reconciled 03/14/24 by Mckinley Siddiqui MD atorvastatin 20 mg PO BEDTIME bupropion HCl XL 300 mg PO QAM cyclobenzaprine 5 mg PO TID PRN diltiazem HCl ER 120 mg PO DAILY escitalopram oxalate 20 mg PO DAILY gabapentin 300 mg PO TID lorazepam 1 mg PO TID quetiapine 300 mg PO BEDTIME zolpidem ER 12.5 mg PO BEDTIME HPI Comments Details: Rianna is a pleasant male. He is a patient Dr. Arana. He is seen for the following urologic conditions - prostate cancer - delayed failure PSA rise - erectile dysfunction Six-month follow-up Has completed salvage radiation PSA nondetectable currently Does have nocturia times 2-3 Trial tamsulosin PSA 03/14 <0.1 4 month follow-up PSA Biochemical recurrence - salvage radiation 10/12 Continued slow rise in PSA to 0.2 [place] 3 + 4 - short term GnRH manipulation Imaging - 04/13 [facility] - PET-CT - no evidence of recurrence Prostate cancer [place] 3 + 4 robotic prostatectomy [facility] [address] Pruitt Original biopsy [place] 3 + 4 with 3 biopsies on left 90% volume - - pT1c, Grade Group 3 Initial therapy robotic prostatectomy [facility] 2018 PSA 06/12 <0.1, 01/10 0.05, 05/12 <0.1, 11/11 0.12, 03/13 0.17, 09/12 0.2 Imaging - 04/13 [facility] - PET-CT - no evidence of recurrence Erectile dysfunction Post prostatectomy Small amount of activity Trial daily Cialis to maximize potential recovery No current partner PFSH Medical History Depression Anxiety Nocturia Hyperlipidemia GERD (gastroesophageal reflux disease) Benign prostatic hyperplasia with lower urinary tract symptoms Back pain with history of spinal surgery High cholesterol Surgical History History of surgery Previous back surgery Review of Systems Const Denies chills and Denies fever(s) Card Reports no additional complaints and Denies syncope Resp Denies cough GI Denies abdominal pain and Denies heartburn Reports as per HPI and Denies change in libido Neuro Denies syncope Psych Denies change in libido Endo Denies change in libido Physical Exam Const General: cooperative, healthy appearing, comfortable and no acute distress Orientation/consciousness: patient oriented x3 HEENT Face and sinus: Yes normal facial exam Mouth: moist mucous membranes Neck Neck: Yes normal visual inspection, Yes full ROM and Yes trachea midline Chest Chest palpation & inspection: normal inspection of the chest Resp Effort & Inspection: normal respiratory effort, able to speak in complete sentences and no respiratory distress GI Inspection: Yes normal to inspection Back/Spine/Pelvis Cervical Spine: normal cervical lordosis Thoracic/Lumbar Spine: thoracic and lumbar spine normal to inspection Skin General skin exam: no rashes or lesions noted Neuro General: patient oriented x3, gait normal, tone normal and moves all extremities Extrem General: Yes normal to inspection and Yes capillary refill normal Assessment & Plan Assessment & Plan (1) Nocturia more than twice per night: Code(s): R35.1 - Nocturia Category: Medical (2) Prostate cancer: Comment: 2019 prostatectomy [facility] Code(s): C61 - Malignant neoplasm of prostate Category: Medical Plan Four month follow-up lab work tele Orders: Orders Prostate Specific Antigen 4 Months R97.21 - Rising PSA following treatment for malignant neoplasm of prostate Testosterone, Total 4 Months R97.21 - Rising PSA following treatment for malignant neoplasm of prostate Medications: New tamsulosin 0.4 mg PO BEDTIME 30 days 30 caps 0RF N40.1 - Benign prostatic hyperplasia with lower urinary tract symptoms, R35.1 - Nocturia Patient Instructions: Imaging studies, laboratory and physical exam results were discussed and reviewed in detail. No major barriers to patient understanding were identified. An opportunity to ask questions regarding the treatment plan was provided. All questions were answered. The patient expressed understanding and agreement with the above treatment plan. The patient is aware they should contact our office by phone for worsening of their current condition or the appearance of new urologic symptoms. Compliance is encouraged with any medications and followup testing that is ordered. It is a privilege to participate in the urologic care of your patient. If you have any questions or concerns regarding treatment for the above conditions, or other urologic issues, please do not hesitate to contact me. The office telephone contact is [phone]. This note is constructed using voice recognition software. While every effort has been made to ensure accuracy black mill operator errors may have been included. Yours sincerely, Dr Mckinley Siddiqui MD, CAMELIA [facility] - Urology Providers of Expert, Compassionate Care for the Genitourinary System Coding Level of Care Code Est Pt Level 4 (69607) Diagnoses Nocturia more than twice per night R35.1 Prostate cancer C61
== END 2024-03-14 14:22 | disposition home or self-care (01) ==
PROVIDERS: PCP Family Medicine; Visit Provider Urology
DX: R35.1 Nocturia (principal); C61 Malignant neoplasm of prostate
CPT/HCPCS: 99214

== ENCOUNTER → 2024-03-14 13:45 | Outpatient (BNVA) | payer MEDICARE, SELFPAY | PROVIDERS: PCP Family Medicine; Visit Provider Urology | DX: N40.1 Benign prostatic hyperplasia with lower urinary tract symptoms (principal); C61 Malignant neoplasm of prostate; R97.21 Rising PSA following treatment for malignant neoplasm of prostate; R35.1 Nocturia; N52.9 Male erectile dysfunction, unspecified | CPT/HCPCS: 99212 ==

== ENCOUNTER → 2024-04-29 11:10 | Outpatient (REF) | payer MEDICARE, SELFPAY ==
--- NOTE | 2024-04-29 11:18 | CA_ITS ---
Acquisition Time: 2024-04-29 11:49:26 Total Exercise Time: 00:08:31 Test Indications: Screening for CAD CP Medications: SEE H Protocol: MILO Max HR: 171 BPM 112% of Pred: 152 BPM Max BP: 158/060 mmHG Max Work Load: 10.1 METS Exercise Stress Test with exercise 8 mins 31 secs of Milo Protocol, achieving 96% MPHR, without any anginal symptoms, with isolated PVCs, with normotensive response to exercise. Without EKG changes meeting criteria for ischemia. Echo images obtained at rest and post peak exercise by tech. Definity contrast used. Test reviewed with Dr. Fernandez. Referred By: Reymundo Arana Overread By: HO BANKS
== END ==
LOC: HO.CARD 11:10
PROVIDERS: PCP Family Medicine; Visit Provider Family Medicine
DX: R07.9 Chest pain, unspecified (principal); I10 Essential (primary) hypertension; E78.00 Pure hypercholesterolemia, unspecified
CPT/HCPCS: 93350; Q9957

== ENCOUNTER → 2024-04-29 11:18 | Outpatient (BNV) | payer MEDICARE, SELFPAY | PROVIDERS: PCP Family Medicine; Visit Provider Nurse Practitioner Family | DX: I25.10 Atherosclerotic heart disease of native coronary artery without angina pectoris (principal); I49.3 Ventricular premature depolarization | CPT/HCPCS: 93016; 93018; 93350; 93352 ==

== ENCOUNTER 2024-07-15 07:24 | Outpatient (REF) | payer MEDICARE, SELFPAY ==
--- OUTSIDE RECORDS SUMMARY | 2024-07-15 07:27 | XMS_ITS | Clinical Summary ---
Author Organization [facility] ity Address [address] [place] [address] Care Team Providers Care Chaplain Resident Name Role Phone Reymundo Arana MD Primary Care Provider [phone] Surgical History Surgery Date Site/Laterality Comments OTHER SURGICAL HISTORY 02/18/2020 PROCEDURE: [place] ARTHRODESIS POSTERIOR INTERBODY 1 NTRSPC LUMBAR; COMMENT: L4-5 decompression, resection of multiple bilateral synovial cysts, fusion, Dr. Tilley OTHER SURGICAL HISTORY PROCEDURE: HISTORY OTHER; COMMENT: Prostate surgery for cancer, PSA has been 0 OTHER SURGICAL HISTORY PROCEDURE: HISTORY OTHER; COMMENT: Right wrist fracture repair BACK SURGERY 11/08/2021 PROCEDURE: HISTORICAL BACK SURGERY; COMMENT: Left L3-4 discectomy, Dr. Tilley Medical History Medical History Date Comments Mixed hyperlipidemia DX:Mixed hy perlipidemia Anxiety disorder DX:Anxiety diso rder Social History Tobacco Use Types Packs/Day Years Used Date Smoking Tobacco: Former Smokeless Tobacco: Never Sex and Gender Information Value Date Recorded Sex Assigned at Not on file Legal Sex Male 6:59 AM EST Gender Identity Not on file Sexual Orientation Not on file Obstetrics History Last Filed Vital Signs Vital Sign Reading Time Taken Comments Blood Pressure - - Pulse - - Temperature - - Respiratory Rate - - Oxygen Saturation - - Inhaled Oxygen Concentration - - Weight 88.5 kg (195 lb) 09/07/2023 11:44 AM EDT Height 177.8 cm (5' 10 ) 09/07/2023 11:44 AM EDT Body Mass Index 27.98 09/07/2023 11:44 AM EDT Plan of Treatment Health Maintenance Due Date Last Done Comments Pneumococcal Vaccine: 50+ Years (1 of 1 - PCV) 08/24/2005 Abdominal Aortic Aneurysm (AAA) Screen 04/24/2022 Cholesterol Screening (Lipid Panel) 04/24/2022 Colorectal Cancer Screening: Colonoscopy 04/24/2022 Depression Screening 04/24/2022 Falls Risk Assessment 04/24/2022 Hepatitis C Screening 04/24/2022 Social Influencers of Health Screening 04/24/2022 COVID-19 Vaccine ( season) 2024 05/13/2021, 09/30/2020, 09/02/2020 Influenza Vaccine (#1) 2024 , 04/07/2020, 06/25/2019, Additional history exists DTaP,Tdap,and Td Vaccines (2 - Td or Tdap) 02/27/2030 02/28/2020 RSV Immunization Patients 60+ Years Old (1 - 1-dose 75+ series) 08/24/2030 Zoster Vaccines Completed 11/24/2017, 08/21, 02/22/2017 HIB Vaccines Aged Out No longer eligi ble based on patient's age to complete this topic HPV Vaccines Aged Out No longer eligi ble based on patient's age to complete this topic Hepatitis A Vaccines Aged Out No long er eligible based on patient's age to complete this topic Hepatitis B Vaccines Aged Out No long er eligible based on patient's age to complete this topic IPV Vaccines Aged Out No longer eligi ble based on patient's age to complete this topic MMR Vaccines Aged Out No longer eligi ble based on patient's age to complete this topic Meningococcal ACWY Vaccine Aged Out N o longer eligible based on patient's age to complete this topic Meningococcal B Vacine Aged Out No lo nger eligible based on patient's age to complete this topic RSV Immunization Patients Under 20 months Aged Out No longer eligible based on patient's age to complete this topic Varicella Vaccines Aged Out No longer eligible based on patient's age to complete this topic Care Teams Chaplain Resident Relationship Specialty Start Date End Date Reymundo Arana MD [address] [place] [address] Dr Fitzgerald, [place]ZZ[place] [address] PCP - General Internal Medicine 10/07/21
[2024-07-15 08:59] LABS: Prostate Specific Antigen < 0.10 ng/mL (<0.05-4.0)
[2024-07-20 13:14] LABS: Testosterone, Total 19 ng/dL (250-1100)
== END 2024-07-15 07:25 | disposition home or self-care (01) ==
LOC: HO.LAB 07:24
PROVIDERS: PCP Family Medicine; Visit Provider Urology
DX: R97.20 Elevated prostate specific antigen [PSA] (principal); Z12.5 Encounter for screening for malignant neoplasm of prostate
CPT/HCPCS: 36415; 84153; 84403

== ENCOUNTER 2024-08-07 08:29 | Outpatient (AMB) | payer MEDICARE, SELFPAY ==
--- NOTE | 2024-08-07 08:30 | A.OFFVIS_ITS ---
Intake Visit Reasons: 4m/PSA/testo(set) Intake Note: Patient is present for 4m/psa/testo Urology Medication:tamsulosin Antibiotic Allergy:none Blood Thinner:none Rim Fire Priming Operator Required: No Allergies No Known Allergies [No Known Allergies*] Allergy (Verified 08/07/24 08:31) HPI Comments Details: Rianna is a pleasant male. He is a patient Dr. Arana. He is seen for the following urologic conditions - prostate cancer - delayed failure PSA rise - erectile dysfunction Follow-up for prostate cancer PSA remains low, testosterone remains suppressed Had trial of tamsulosin for urgency frequency Still with some urgency Trial tolterodine 2 mg 07/16 <0.1 T 19 03/14 <0.1 4 month follow-up PSA Biochemical recurrence - salvage radiation 10/12 Continued slow rise in PSA to 0.2 [place] 3 + 4 - short term GnRH manipulation Imaging - 04/13 [facility] - PET-CT - no evidence of recurrence Prostate cancer [place] 3 + 4 robotic prostatectomy [facility] [address] Pruitt Original biopsy [place] 3 + 4 with 3 biopsies on left 90% volume - - pT1c, Grade Group 3 Initial therapy robotic prostatectomy [facility] 2018 PSA 06/12 <0.1, 01/10 0.05, 05/12 <0.1, 11/11 0.12, 03/13 0.17, 09/12 0.2 Imaging - 04/13 [facility] - PET-CT - no evidence of recurrence Erectile dysfunction Post prostatectomy Small amount of activity Trial daily Cialis to maximize potential recovery No current partner PFSH Medical History Depression Anxiety Nocturia Hyperlipidemia GERD (gastroesophageal reflux disease) Benign prostatic hyperplasia with lower urinary tract symptoms Back pain with history of spinal surgery High cholesterol Surgical History History of surgery Previous back surgery Review of Systems Const Denies chills and Denies fever(s) Card Reports no additional complaints and Denies syncope Resp Denies cough GI Denies abdominal pain and Denies heartburn Reports as per HPI and Denies change in libido Neuro Denies syncope Psych Denies change in libido Endo Denies change in libido Physical Exam Const General: cooperative, healthy appearing, comfortable and no acute distress Orientation/consciousness: patient oriented x3 HEENT Face and sinus: Yes normal facial exam Mouth: moist mucous membranes Neck Neck: Yes normal visual inspection, Yes full ROM and Yes trachea midline Chest Chest palpation & inspection: normal inspection of the chest Resp Effort & Inspection: normal respiratory effort, able to speak in complete sentences and no respiratory distress GI Inspection: Yes normal to inspection Back/Spine/Pelvis Cervical Spine: normal cervical lordosis Thoracic/Lumbar Spine: thoracic and lumbar spine normal to inspection Skin General skin exam: no rashes or lesions noted Neuro General: patient oriented x3, gait normal, tone normal and moves all extremities Extrem General: Yes normal to inspection and Yes capillary refill normal Assessment & Plan Assessment & Plan (1) Prostate cancer: Comment: 2019 prostatectomy [facility] Code(s): C61 - Malignant neoplasm of prostate Category: Medical (2) Nocturia more than twice per night: Code(s): R35.1 - Nocturia Category: Medical Plan Four month follow-up repeat labs tele Orders: Orders Prostate Specific Antigen 4 Months C61 - Malignant neoplasm of prostate Testosterone, Total 4 Months C61 - Malignant neoplasm of prostate Medications: New tolterodine ER 2 mg PO DAILY 30 days 30 caps 1RF R35.1 - Nocturia, R39.15 - Urgency of urination Patient Instructions: This note is constructed using voice recognition software. While every effort has been made to ensure accuracy car blocker errors may have been included. Imaging studies, laboratory and physical exam results were discussed and reviewed in detail. No major barriers to patient understanding were identified. An opportunity to ask questions regarding the treatment plan was provided. All questions were answered. The patient expressed understanding and agreement with the above treatment plan. The patient is aware they should contact our office by phone for worsening of their current condition or the appearance of new urologic symptoms. Compliance is encouraged with any medications and followup testing that is ordered. It is a privilege to participate in the urologic care of your patient. If you have any questions or concerns regarding treatment for the above conditions, or other urologic issues, please do not hesitate to contact me. The office telephone contact is [phone]. Sincerely, Dr Mckinley Siddiqui MD, CAMELIA [facility] - Urology Compassionate Specialist Care for the Genitourinary System Coding Level of Care Code Est Pt Level 4 (37428) Diagnoses Prostate cancer C61 Nocturia more than twice per night R35.1
--- OUTSIDE RECORDS SUMMARY | 2024-08-07 09:15 | XMS_ITS | Clinical Summary ---
Author Organization [facility] ity Address [address] [place] [address] Care Team Providers Care Kier Drier Name Role Phone Reymundo Arana MD Primary Care Provider [phone] Surgical History Surgery Date Site/Laterality Comments OTHER SURGICAL HISTORY 02/18/2020 PROCEDURE: [place] ARTHRODESIS POSTERIOR INTERBODY 1 NTRSPC LUMBAR; COMMENT: [...] age to complete this topic Care Teams Kier Drier Relationship Specialty Start Date End Date Reymundo Arana MD [address] [place] [address] Dr Fitzgerald, [place] [address] PCP - General Internal Medicine 10/07/21
--- OUTSIDE RECORDS SUMMARY | 2024-08-07 09:15 | XMS_ITS | Clinical Summary ---
Author Organization [facility] Address [address] [place] [address] Care Team Providers Care Client Service Consultant Name Role Phone Reymundo Arana MD Primary Care Provider [phone] Social History Tobacco Use Types Packs/Day Years Used Date Smoking Tobacco: Never Assessed Sex and Gender Information Value Date Recorded Sex Assigned at Not on file Gender Identity Not on file Sexual Orientation Not on file Plan of Treatment Health Maintenance Due Date Last Done Comments Hepatitis C Screening 1955 COVID-19 Vaccine (#1) 02/24/1956 Depression Screening 1967 Preventative Health Evaluation 08/24/1973 DTap / Tdap / Td (1 - Tdap) 08/24/1974 Colon Cancer Screening (Colonoscopy) 08/24/2000 Shingrix-Zoster Vaccine (1 of 2) 08/24/2005 Fall Risk Assessment 08/24/2020 Pneumococcal Vaccine (1 of 1 - PCV) 08/24/2020 Influenza Vaccine (#1) 2024 RSV Adult > 60+ Yrs or Pregn ant (1 - 1-dose 75+ series) 08/24/2030 Hepatitis B Vaccines Aged Out No long er eligible based on patient's age to complete this topic RSV Ped < 20 months Aged Out No longe r eligible based on patient's age to complete this topic Care Teams Client Service Consultant Relationship Specialty Start Date End Date Reymundo Arana MD [address] [place] [address] [place] [address] PCP - General Internal Medicine 12/03/19
== END 2024-08-07 08:41 | disposition home or self-care (01) ==
LOC: HO.HUSH 08:29
PROVIDERS: PCP Family Medicine; Visit Provider Urology
DX: C61 Malignant neoplasm of prostate (principal); R35.1 Nocturia
CPT/HCPCS: 99214

== ENCOUNTER → 2024-08-07 08:29 | Outpatient (BNVA) | payer MEDICARE, SELFPAY | PROVIDERS: PCP Family Medicine; Visit Provider Urology | DX: C61 Malignant neoplasm of prostate (principal); R35.1 Nocturia | CPT/HCPCS: 99212 ==

== ENCOUNTER 2024-10-08 07:26 | Outpatient (REF) | payer MEDICARE, SELFPAY ==
--- OUTSIDE RECORDS SUMMARY | 2024-10-08 07:29 | XMS_ITS | Clinical Summary ---
Author Organization [facility] ity Address [address] [place] [address] Care Team Providers Care Technology Infusion Specialist Name Role Phone Reymundo Arana MD Primary Care Provider [phone] Surgical History Surgery Date Site/Laterality Comments OTHER SURGICAL HISTORY 02/18/2020 PROCEDURE: [place] ARTHRODESIS POSTERIOR INTERBODY 1 NTRSPC LUMBAR; COMMENT: [...] season) 2024 05/13/2021, 09/30/2020, 09/02/2020 Influenza Vaccine (Season Ended) 2025 05/13/2021, 04/07/2020, 06/25/2019, Additional history exists DTaP,Tdap,and Td Vaccines (2 - Td or Tdap) 02/27/2030 02/28/2020 RSV Immunization Adult Patients (1 - 1-dose 75+ series) 08/24/2030 Zoster [...] age to complete this topic Meningococcal B Vaccine Aged Out No l onger eligible based on patient's age to complete this topic RSV Immunization Patients Under 20 months Aged Out No longer eligible based on patient's age to complete this topic Varicella Vaccines Aged Out No longer eligible based on patient's age to complete this topic Care Teams Technology Infusion Specialist Relationship Specialty Start Date End Date Reymundo Arana MD [address] [place] [address] [place] [address] PCP - General Internal Medicine 10/07/21
[2024-10-08 07:37] LABS: MANUAL DIFF FLAG NO
[2024-10-08 08:01] LABS: Basophils Percent Auto 0.6 % (0-2); Eosinophils Absolute Auto 0.6 X10*3/uL (0.0-0.4); Hemoglobin 14.2 g/dl (14.0-18.0); Imm Gran Abs Auto 0.03 X10*3/uL (0.00-0.03); Imm Gran Pct Auto 0.5 % (0.0-0.4); Lymphocytes Absolute Auto 1.1 X10*3/uL (1.2-4.9); Lymphocytes Percent Auto 16.5 % (20-40); Mean Corpuscular HGB Conc 34.6 g/dl (31.0-36.0); Mean Corpuscular Hemoglobin 31.6 pg (27.0-33.0); Mean Corpuscular Volume 91.3 fL (80.0-98.0); Mean Platelet Volume 8.5 fL (9.4-12.4); Monocytes Absolute Auto 0.8 X10*3/uL (0.1-1.2); Monocytes Percent Auto 12.3 % (2-11); Neutrophils Absolute Auto 3.9 x10*3/uL (2.0-8.3); Neutrophils Percent Auto 61.1 % (45-73); Platelet Count 329 X10*3/uL (160-400); Red Blood Count 4.49 X10*6/uL (4.60-5.80); Red Cell Distribution Width 12.4 % (11.0-16.0); White Blood Count 6.4 X10*3/uL (4.8-10.8)
[2024-10-08 08:24] LABS: Alanine Aminotransferase 32 U/L (0-40); Anion Gap 11 (12-20); Aspartate Amino Transferase 39 U/L (5-37); Blood Urea Nitrogen 13 mg/dL (9-16); Carbon Dioxide 27 mmol/L (22-29); Chloride 105 mmol/L (96-108); Cholesterol 182 mg/dL (<200); Estimated Glomerular Filt Rate > 60; Glucose Fasting 114 mg/dL (60-99); HDL Cholesterol 62 mg/dL (>40); LDL Cholesterol Calculated 104 mg/dL (<100); Potassium 4.6 mmol/L (3.3-5.1); Sodium 138 mmol/L (135-145); Triglycerides 83 mg/dL (<150)
== END 2024-10-08 07:27 | disposition home or self-care (01) ==
LOC: HO.LAB 07:26
PROVIDERS: PCP Family Medicine; Visit Provider Family Medicine
DX: I10 Essential (primary) hypertension (principal); R53.83 Other fatigue; E78.00 Pure hypercholesterolemia, unspecified; Z79.899 Other long term (current) drug therapy; Z83.3 Family history of diabetes mellitus
CPT/HCPCS: 36415; 80051; 80061; 82550; 82565; 82947; 84450; 84460; 84520; 85025

== ENCOUNTER 2024-11-19 07:20 | Outpatient (REF) | payer MEDICARE, SELFPAY ==
--- OUTSIDE RECORDS SUMMARY | 2024-11-19 07:23 | XMS_ITS | Patient Health Record ---
Author Organization [facility] Address [address] [place] [address] Care Team Providers Care Net Sorter Name Role Phone Sumit MAE, Reymundo Primary Care Provider UnavailDenis Camilo Unavailable [phone] Allergies Allergen (clinical drug ingredient) Drug/Non Drug Allergy documented on EMR Reaction Allergy Type Onset Date Status bee stings (uncoded) Unknown Allergy Active Reason For Referral No Information Medications Medication SIG (Take, Route, Fr equency, Duration) Notes Start Date End Date Status Zolpidem Tartrate Ac tive LORazepam Active buPROPion HCl ER (XL) Active Atorvastatin Calcium Active Problems Problem Type SNOMED Code ICD Code Onset Dates Problem Status W/U Status Risk Notes Problem [id number] Encounter for screening for malignant neoplasm of colon (Z12.11) Active confirmed Problem Screening for malignant neoplasm of rectum (436623597) Encounter for screening for malignant neoplasm of rectum (Z12.12) Active confirmed Problem [id number] Preprocedural examination (Z01.818) Active confirmed Plan Of Treatment Future Test Test Name Order Date COLONOSCOPY 11/03/2015 Insurance Providers Payer Name Payer Address Payer Phone Subscriber Number Group Number Insured Name Patient Relationship to Insured Coverage Start Date Coverage End Date [facility] [address] [facility] [phone] [id number] PEACE ZELAYA Self - patient is the insured Medical (General) History Medical History History ICD Code Screening colonoscopy 09-01-2006--negativ e except for internal hemorrhoids Denies [place],DM,CVA,Lung disease,renal dise ase Hypercholesterolemia Depression/anxiety
--- OUTSIDE RECORDS SUMMARY | 2024-11-19 07:23 | XMS_ITS | Clinical Summary ---
Author Organization [facility] Address [address] [place] [address] Care Team Providers Care Panel Machine Operator Name Role Phone Reymundo Arana MD Primary Care Provider [phone] Social History Tobacco Use Types Packs/Day Years [...] of 1 - PCV) 08/24/2020 Influenza Vaccine (Season Ended) 2025 RSV Adult > 60+ Yrs or Pregn ant (1 - 1-dose 75+ series) 08/24/2030 Hepatitis B Vaccines Aged Out No long er eligible based on patient's age to complete this topic RSV Ped < 20 months Aged Out No longe r eligible based on patient's age to complete this topic Care Teams Panel Machine Operator Relationship Specialty Start Date End Date Reymundo Arana MD [address] [place] [address] [place] [address] PCP - General Internal Medicine 12/03/19
--- OUTSIDE RECORDS SUMMARY | 2024-11-19 07:23 | XMS_ITS | Clinical Summary ---
Author Organization [facility] ity Address [address] [place] [address] Care Team Providers Care Spray Gun Operator Name Role Phone Reymundo Arana MD Primary Care Provider [phone] Surgical History Surgery Date Site/Laterality Comments OTHER SURGICAL HISTORY 02/18/2020 PROCEDURE: CT ARTHRODESIS POSTERIOR INTERBODY 1 NTRSPC LUMBAR; COMMENT: [...] age to complete this topic Care Teams Spray Gun Operator Relationship Specialty Start Date End Date Reymundo Arana MD [address] [place] [address] [place] [address] PCP - General Internal Medicine 10/07/21
[2024-11-19 08:37] LABS: Prostate Specific Antigen < 0.10 ng/mL (<0.05-4.0)
== END 2024-11-19 07:21 | disposition home or self-care (01) ==
LOC: HO.LAB 07:20
PROVIDERS: PCP Internal Medicine; Visit Provider Urology
DX: C61 Malignant neoplasm of prostate (principal)
CPT/HCPCS: 36415; 84153; 84403

== ENCOUNTER 2024-12-06 08:53 | Outpatient (AMB) | payer MEDICARE, SELFPAY ==
--- NOTE | 2024-12-06 08:53 | MHC.OFFVIS ---
Intake Visit Reasons: 4m/ PSA/Testo Intake Note: Patient is present for 4M/PSA/TESTO Urology Medication:TOLTERODINE,TAMSULOSIN Antibiotic Allergy:NONE Blood Thinner:NONE Gold Plater Required: No Allergies No Known Allergies (No Known Allergies*) Allergy (Verified 12/06/24 08:55) HPI Comments Details: Rianna is a pleasant male. He is a patient Dr. Arana. He is seen for the following urologic conditions - prostate cancer - delayed failure PSA rise - erectile dysfunction Telemedicine Evaluation 15 min Consultation Moment.Us Sepide[facility] Video Follow-up for prostate cancer PSA remains low, testosterone recovering. Hot flashes reducing Still with some degree of urgency. Work 4 times last night. Switch to 4 mg tolterodine 12/13 <0.1, T 95 07/16 <0.1 T 19 03/14 <0.1 4 month follow-up PSA Biochemical recurrence - salvage radiation 10/12 Continued slow rise in PSA to 0.2 [place] 3 + 4 - short term GnRH manipulation Imaging - 04/13 [facility] - PET-CT - no evidence of recurrence Prostate cancer [place] 3 + 4 robotic prostatectomy [facility] [address] Pruitt Original biopsy [place] 3 + 4 with 3 biopsies on left 90% volume - - pT1c, Grade Group 3 Initial therapy robotic prostatectomy [facility] 2018 PSA 06/12 <0.1, 01/10 0.05, 05/12 <0.1, 11/11 0.12, 03/13 0.17, 09/12 0.2 Imaging - 04/13 [facility] - PET-CT - no evidence of recurrence Erectile dysfunction Post prostatectomy Small amount of activity Trial daily Cialis to maximize potential recovery No current partner PFSH Medical History Depression Anxiety Nocturia Hyperlipidemia GERD (gastroesophageal reflux disease) Benign prostatic hyperplasia with lower urinary tract symptoms Back pain with history of spinal surgery High cholesterol Surgical History History of surgery Previous back surgery Review of Systems Const All systems reviewed & are unremarkable except as noted in HPI and below Reports no additional complaints Resp Reports no additional complaints GI Reports no additional complaints Reports as per HPI Musc Reports no additional complaints Physical Exam Telemedicine evaluation Appropriate responses Regular breathing rate and rhythm HEENT Head: Yes normal to inspection Ears: hearing grossly normal bilaterally Eyes General: appearance normal, both eyes and all related structures Neck Neck: Yes normal visual inspection Chest Chest palpation & inspection: normal inspection of the chest Resp Effort & Inspection: normal respiratory effort and able to speak in complete sentences Telehealth Telehealth Location of provider rendering services: practice address Location of patient: address on file Patient Identification confirmed using: Name, : Yes Telehealth method: voice only Patient verbally consented to treatment: Yes Patient verbally consented to billing insurance company: Yes Patient informed of any privacy concerns related to visit: Yes Assessment & Plan Assessment & Plan (1) Cancer of prostate with intermediate recurrence risk, stage T2B-C or [place] 7 or prostate-specific antigen (PSA) 10-20: Code(s): C61 - Malignant neoplasm of prostate Category: Medical (2) Rising PSA following treatment for malignant neoplasm of prostate: Code(s): R97.21 - Rising PSA following treatment for malignant neoplasm of prostate Category: Medical Plan Increase tolterodine dose to 4 mg Four month follow-up continue to follow PSA and testosterone Orders: Orders Testosterone, Total 4 Months R97.21 - Rising PSA following treatment for malignant neoplasm of prostate Prostate Specific Antigen 4 Months R97.21 - Rising PSA following treatment for malignant neoplasm of prostate Medications: Changed From tolterodine ER 2 mg PO DAILY 30 days 30 caps 1RF R35.1 - Nocturia, R39.15 - Urgency of urination To tolterodine ER 4 mg PO DAILY 30 caps 1RF 30 days R35.1 - Nocturia, R39.15 - Urgency of urination Patient Instructions: This note is constructed using voice recognition software. While every effort has been made to ensure accuracy quill cleaning machine operator errors may have been included. Imaging studies, laboratory and physical exam results were discussed and reviewed in detail. No major barriers to patient understanding were identified. An opportunity to ask questions regarding the treatment plan was provided. All questions were answered. The patient expressed understanding and agreement with the above treatment plan. The patient is aware they should contact our office by phone for worsening of their current condition or the appearance of new urologic symptoms. Compliance is encouraged with any medications and followup testing that is ordered. It is a privilege to participate in the urologic care of your patient. If you have any questions or concerns regarding treatment for the above conditions, or other urologic issues, please do not hesitate to contact me. The office telephone contact is [phone]. Sincerely, Dr Mckinley Siddiqui MD, CAMELIA [facility] - Urology Compassionate Specialist Care for the Genitourinary System Coding Level of Care Code Tele Est Pt Level 4 (46875) Complex EM visit Add On G2211 Diagnoses Cancer of prostate with intermediate recurrence risk, stage T2B-C or [place] 7 or prostate-specific antigen (PSA) 10-20 C61 Rising PSA following treatment for malignant neoplasm of prostate R97.21
--- OUTSIDE RECORDS SUMMARY | 2024-12-06 08:55 | XMS_ITS | Patient Health Record ---
Author Organization [facility] Address [address] [place] [address] Care Team Providers Care License Examiner Name Role Phone Sumit (RETIRED) Reymundo MAE Primary Care Provider Unavailable Denis Ramos Unavailable [phone] Allergies Allergen (clinical drug ingredient) Drug/Non Drug [...] Problem Status W/U Status Risk Notes Problem [id number] Encounter for screening for malignant neoplasm of colon (Z12.11) Active confirmed Problem Screening for malignant neoplasm of rectum (311020358) Encounter for screening for malignant neoplasm of rectum (Z12.12) Active confirmed Problem 45406544 Preprocedural examination (Z01.818) Active confirmed Plan Of Treatment Future Test Test Name Order Date COLONOSCOPY 11/03/2015 Insurance Providers Payer Name Payer Address Payer Phone Subscriber Number Group Number Insured Name Patient Relationship to Insured Coverage Start Date Coverage End Date [facility] [address] [facility] [place] [phone] [id number] PEACE EZLAYA Self - patient is the insured Medical (General) History Medical History History ICD Code Screening colonoscopy 09-01-2006--negativ e except for internal hemorrhoids Denies [place],DM,CVA,Lung disease,renal dise ase Hypercholesterolemia Depression/anxiety
--- OUTSIDE RECORDS SUMMARY | 2024-12-06 08:55 | XMS_ITS | Clinical Summary ---
Author Organization [facility] Address [address] [place] [address] Care Team Providers Care Otr Refrigerated Cdl Truck Driver Name Role Phone Reymundo Arana MD Primary Care Provider [phone] Social History Tobacco Use Types Packs/Day Years [...] 1 - PCV) 08/24/2020 Influenza Vaccine (#1) 2025 RSV Adult > 60+ Yrs or Pregn ant (1 - 1-dose 75+ series) 08/24/2030 Hepatitis B Vaccines Aged Out No long er eligible based on patient's age to complete this topic RSV Ped < 20 months Aged Out No longe r eligible based on patient's age to complete this topic Care Teams Otr Refrigerated Cdl Truck Driver Relationship Specialty Start Date End Date Reymundo Arana MD [address] [place] [address] [place] [address] PCP - General Internal Medicine 12/03/19
--- OUTSIDE RECORDS SUMMARY | 2024-12-06 08:55 | XMS_ITS | Clinical Summary ---
Author Organization [facility] ity Address [address] [place] [address] Care Team Providers Care Gas Controller Name Role Phone Reymundo Arana MD Primary Care Provider [phone] Surgical History Surgery Date Site/Laterality Comments OTHER SURGICAL HISTORY 02/18/2020 PROCEDURE: [place] ARTHRODESIS POSTERIOR INTERBODY 1 NTRSPC LUMBAR; COMMENT: [...] 2024 05/13/2021, 09/30/2020, 09/02/2020 Influenza Vaccine (#1) 2025 , 04/07/2020, 06/25/2019, Additional history exists DTaP,Tdap,and [...] age to complete this topic Care Teams Gas Controller Relationship Specialty Start Date End Date Reymundo Arana MD [address] [place] [address] [place] [address] PCP - General Internal Medicine 10/07/21
== END 2024-12-06 09:38 | disposition home or self-care (01) ==
LOC: HO.HUSH 08:53
PROVIDERS: PCP Internal Medicine; Visit Provider Urology
DX: C61 Malignant neoplasm of prostate (principal); R97.21 Rising PSA following treatment for malignant neoplasm of prostate
CPT/HCPCS: 99214; G2211

== ENCOUNTER → 2025-01-17 11:26 | Outpatient (BNVA) | payer MEDICARE, SELFPAY | PROVIDERS: PCP Family Medicine; Visit Provider Student in an Organized Health Care Education/Training Program | DX: C61 Malignant neoplasm of prostate (principal); E78.5 Hyperlipidemia, unspecified; F32.A Depression, unspecified; I10 Essential (primary) hypertension; M79.641 Pain in right hand; M79.642 Pain in left hand | CPT/HCPCS: 96127; 99202 ==

== ENCOUNTER → 2025-01-17 11:26 | Outpatient (AMB) | payer MEDICARE, SELFPAY ==
--- NOTE | 2025-01-17 11:30 | MHC.PC.OV ---
Vital Signs 01/17/25 11:40 Height 5 ft 10 in Weight 199 lb BMI 28.6 BP 106/70 Blood Pressure Location Rt brachial Position Sitting Respiration 16 Pulse 82 Pulse Source Pulse Oximeter Temp 97.2 F Pulse Oximetry (%) 95 Oxygen Delivery Method Room Air Intake Visit Reasons: Routine Customs Collector Required: No Accompanied by: Self / Same As Patient Allergies No Known Allergies (No Known Allergies*) Allergy (Verified 01/17/25 11:30) Tobacco use date assessed: 01/17/25 Fall risk assessment: No Falls in past year Last assessed Fall Risk: 01/17/25 HPI HPI Comments History of Present Illness Details The patient is a 69-year-old male presenting for a meet and greet and annual physical examination as a new patient in our system. The goal is to review and manage his chronic medical conditions. The patient has a history of prostate cancer, having undergone prostatectomy and radiation treatment approximately four years ago. He is currently managed for essential hypertension and hyperlipidemia. Additionally, he is being treated for depression, reporting ongoing management under Dr. Tyrell Tuttle. The patient reports taking duloxetine for less than a year after switching from a different medication. Symptoms of depression are consistent with an underlying mood disorder, as he mentions frequent anger but denies feeling down, hopeless, or having poor energy most of the time. He also experiences chronic joint pain, intermittently affecting his shoulders and causing sharp pains in the buttocks. These episodes of pain are unpleasant but transient, likely associated with age-related changes affecting bone and nerve compressions. He has noted changes in his vision post-Lasik surgery, with occasional blurring, but no major headaches, shortness of breath, nausea, or vomiting. His urination is frequent, which he relates to medication use, and he uses MiraLax for occasional constipation. Medical History: - Prostate cancer (post-prostatectomy and radiation) - Essential hypertension - Hyperlipidemia - Depression - Insomnia - Anxiety (partial) - Chronic joint pain, potentially arthritis Surgical History: - Prostatectomy (approximately four years ago) Medications: - Tamsulosin for prostate management - Atorvastatin for hyperlipidemia - Diltiazem for hypertension - Duloxetine (Cymbalta) for depression - Bupropion for depression - Lorazepam for anxiety (1 mg, three times a day) - Zolpidem for sleep - MiraLax as needed for constipation Family History: - Father with a history of heart disease Social: - Former emergency medical technician basic - Resides with girlfriend - Former smoker, quit after about six years - No alcohol consumption currently - No substance abuse history - Engages in walking and home activities [facility] Medical History (Updated 01/17/25 @ 11:59 by Nate Quiroz MD) Bilateral hand pain Hypertension Depression Anxiety Nocturia Hyperlipidemia GERD (gastroesophageal reflux disease) Benign prostatic hyperplasia with lower urinary tract symptoms Back pain with history of spinal surgery High cholesterol Surgical History (Updated 01/16/25 @ 15:56 by Lindsey Gross) History of colonoscopy (~02/09/16) History of surgery Previous back surgery Social History Housing: House Patient Tobacco Use Status: Former Tobacco user Tobacco use type: Cigarette e-Cigarette/Vaping Use: Never Used service: No Current occupational status: unemployed Questionnaire PHQ-9 Over the last 2 weeks, how often have you been bothered by any of the following problems? 1. Little interest or pleasure in doing things: several days 2. Feeling down, depressed, or hopeless: not at all 3. Trouble falling or staying asleep, or sleeping too much: several days 4. Feeling tired or having little energy: several days 5. Poor appetite or overeating: not at all 6. Feeling bad about yourself - or that you are a failure or have let yourself or your family down: not at all 7. Trouble concentrating on things, such as reading the newspaper or watching television: not at all 8. Moving or speaking so slowly that other people could have noticed. Or the opposite - being so fidgety or restless that you have been moving around a lot more than usual: not at all 9. Thoughts that you would be better off or of hurting yourself in some way: not at all Total score: 3 Depression Screening Interpretation: Negative Depression Screening Done: Yes 89788 - PHQ-9 Billing: Yes Source: Developed by Drs. Denis Corea, Vicki Rios, Elder Juarez and colleagues, with an educational odette from [employer]. Thrive Questionnaire Date Thrive assessed: 01/17/25 I am a: Patient What is your living situation today?: I have a steady place to live Within the past 12 months, did the food you bought not last and you didn't have the money to get more?: Never true Within the past 12 months, did you worry whether your food would run out before you got money to buy more?: Never true Do you have trouble paying for medicines?: No Do you have trouble getting transportation to medical appointments?: No Do you have trouble paying your heating and electricity bill?: No Do you have trouble taking care of your child, family member or friend?: No Do you have trouble with day-to-day activities such as bathing, preparing meals, shopping, managing finances, etc.?: No Are you currently unemployed and looking for a job?: No Are you interested in more education?: No THRIVE Score: 0 AUDIT C Alcohol Use Questionnaire (AUDIT-C) 1. How often do you have a drink containing alcohol?: Never 3. How often do you have six or more drinks on one occasion?: Never Total Score: 0 Score Reviewed/Action Taken: Yes SUNDEEP-7 AMB Questionnaire SUNDEEP-7 Date SUNDEEP - 7 assessed: 01/17/25 Feeling nervous, anxious, or on edge: 0 = Not at all Not being able to stop or control worryin = Not at all Worrying too much about different things: 0 = Not at all Trouble relaxin = Several days Being so restless that it is hard to sit still: 0 = Not at all Becoming easily annoyed or irritable: 1 = Several days Feeling afraid as if something awful might happen: 0 = Not at all Total SUNDEEP-7 score (0-4 normal; 5-9 mild; 10-14 moderate; 15-21 severe): 2 Source: Developed by Drs. Denis Corea, Vicki Rios, Elder Juarez and colleagues, with an educational odette from [employer]. SUNDEEP-7 Assessment Billing SUNDEEP-7 Assessment Tool: SUNDEEP-7 Assessment 60834 Review of Systems Const Details: - Constitutional: Denies smoking, alcohol, or drug use - Eyes: Reports blurred vision, history of Lasik surgery - Cardiovascular: Denies chest pain and dizziness - Respiratory: Denies shortness of breath - Gastrointestinal: Reports frequent urination, occasional constipation managed with MiraLax - Musculoskeletal: Reports chronic joint pain (shoulders and buttocks) - Neurological: Denies headaches, dizziness - Psychological: Reports anger, denies feeling down, hopeless, suicide attempts Physical exam (Primary Care) Vital Signs: Last Vital Signs Temp 97.2 F 01/17/25 11:40 Pulse 82 01/17/25 11:40 Resp 16 01/17/25 11:40 BP 106/70 01/17/25 11:40 Pulse Ox 95 01/17/25 11:40 Oxygen Delivery Method Room Air 01/17/25 11:40 BMI result Body Mass Index 28.6 Tobacco/Smoking Status: Tobacco use Status Tobacco use date assessed 01/17/25 01/17/25 11:32 Patient Tobacco Use Status Former Tobacco user 01/17/25 11:44 Tobacco use type Cigarette 01/17/25 11:44 e-Cigarette/Vaping Use Never Used 01/17/25 11:44 Depression Screening Interpretation: Negative Const Other: General: Alert and oriented, Well nourished, No acute distress. Eye: Pupils are equal, round and reactive to light, Intact accommodation, Extraocular movements are intact, Normal conjunctiva, Vision slightly blurry, history of Lasik surgery. HENT: Normocephalic, Atraumatic, Tympanic membranes are clear, Normal hearing, Oral mucosa is moist, No pharyngeal erythema, Ear canals patent. Respiratory: Lungs CTA bilaterally, No wheeze, Respirations are non-labored. Cardiovascular: Regular rate, Regular rhythm, S1 auscultated, S2 auscultated, No murmur, Good pulses equal in all extremities, Normal peripheral perfusion, Slight swelling in legs. Gastrointestinal: Soft, Non-tender, Non-distended, Normal bowel sounds, No organomegaly. Musculoskeletal: Normal range of motion, Normal strength, No tenderness, No deformity, Normal gait, Reports occasional joint pain in shoulder and buttocks, Possible arthritis in fingers. Integumentary: Warm, Dry, [place], Intact. Neurologic: Alert, Oriented, Normal sensory, Normal motor function, No focal defects, Cranial Nerves II-XII are grossly intact, Normal deep tendon reflexes. Psychiatric: Cooperative, Angry mood, Appropriate affect, Normal judgment. Coding Level of Care Code New Pt Level 4 (94191) New Pt Prev Care >65yr (82443) Diagnoses Prostate cancer C61 Hyperlipidemia E78.5 Depression F32.A Hypertension I10 Bilateral hand pain M79.641; M79.642 Additional Codes SUNDEEP-7 Assessment Billing - SUNDEEP-7 Assessment Tool: SUNDEEP-7 Assessment 75282 ([id number]) PHQ-9 - 41229 - PHQ-9 Billing: Yes ([id number]) Assessment & Plan Assessment & Plan (1) Prostate cancer: Comment: 2019 prostatectomy [facility] and post radiation Code(s): C61 - Malignant neoplasm of prostate Category: Medical Plan: Continue follow up with Urology (2) Hyperlipidemia: Comment: - Cholesterol management with atorvastatin; monitor lipid profile with upcoming blood work. Code(s): E78.5 - Hyperlipidemia, unspecified Category: Medical (3) Depression: Comment: - Ongoing management with duloxetine and bupropion; Code(s): F32.A - Depression, unspecified Category: Medical Plan: continue follow-up with psychiatrist. (4) Hypertension: Comment: - Blood pressure readings stable today; continue current antihypertensive regimen. Code(s): I10 - Essential (primary) hypertension Category: Medical Plan: Continue diltiazem 120mg Daily (5) Bilateral hand pain: Comment: - Occasional with some stiffness, exam shows some enlarged fingers will obtain imaging to evaluate Code(s): M79.641 - Pain in right hand; M79.642 - Pain in left hand Category: Medical Plan: Hand X_Ray Plan 4. Depression - Ongoing management with duloxetine and bupropion; continue follow-up with psychiatrist. 5. Insomnia - Continue Zolpidem at night as needed, with ongoing monitoring of sleep quality. (And management by psychiatrist) 7. Anxiety (partial) - Lorazepam to manage symptoms; recommend further psychiatric evaluation if needed. (And management by psychiatrist) During the conversation, I discussed the patient?s current conditions and treatment regimens, emphasizing the importance of maintaining follow-up appointments with the oncologist for prostate cancer care post-prostatectomy and radiation. Treatment strategies for essential hypertension, hyperlipidemia, and depression were reviewed. I informed the patient about the potential for further evaluation and treatment adjustments if symptoms persist or worsen, particularly for joint pain and anxiety. We also discussed the importance of regular physical activity and preventative screenings such as colonoscopy. The patient was receptive to recommendations for lifestyle changes and further monitoring arrangements. Orders: Orders Complete Blood Count Auto Diff Today E78.5 - Hyperlipidemia, unspecified, I10 - Essential (primary) hypertension, Z12.11 - Encounter for screening for malignant neoplasm of colon Hemoglobin A1c Today E78.5 - Hyperlipidemia, unspecified, I10 - Essential (primary) hypertension, Z12.11 - Encounter for screening for malignant neoplasm of colon Hepatitis A,B,C Profile Today E78.5 - Hyperlipidemia, unspecified, I10 - Essential (primary) hypertension, Z12.11 - Encounter for screening for malignant neoplasm of colon HIV Ab/Ag Today E78.5 - Hyperlipidemia, unspecified, I10 - Essential (primary) hypertension, Z12.11 - Encounter for screening for malignant neoplasm of colon Lipid Panel Today E78.5 - Hyperlipidemia, unspecified, I10 - Essential (primary) hypertension, Z12.11 - Encounter for screening for malignant neoplasm of colon Syphilis Screen Today E78.5 - Hyperlipidemia, unspecified, I10 - Essential (primary) hypertension, Z12.11 - Encounter for screening for malignant neoplasm of colon TSH reflex Free T4 Today E78.5 - Hyperlipidemia, unspecified, I10 - Essential (primary) hypertension, Z12.11 - Encounter for screening for malignant neoplasm of colon Comprehensive Met. Panel Today E78.5 - Hyperlipidemia, unspecified, I10 - Essential (primary) hypertension, Z12.11 - Encounter for screening for malignant neoplasm of colon Vitamin D 25-OH Total Today E78.5 - Hyperlipidemia, unspecified, I10 - Essential (primary) hypertension, Z12.11 - Encounter for screening for malignant neoplasm of colon Referrals Open Access Screening Colonoscopy Referral E78.5 - Hyperlipidemia, unspecified, I10 - Essential (primary) hypertension, Z12.11 - Encounter for screening for malignant neoplasm of colon Patient Instructions: - Continue current medication regimen as directed. - Maintain follow-up appointments with your oncologist for prostate cancer monitoring. - Schedule and complete upcoming blood work. - Monitor blood pressure at home, and keep a record. - Engage in regular physical activity to help manage joint pain. - Consider scheduling a colonoscopy soon since it is overdue. - Report any worsening or unexpected symptoms such as increased pain, difficulty breathing, or chest pain to your healthcare provider immediately. - Return for a six-month follow-up or sooner if needed.
[2025-01-17 11:40] VITALS: BP 106/70; PULSE 82; RESP 16; TEMP 36.2; O2SAT 95; BMI 28.6
--- OUTSIDE RECORDS SUMMARY | 2025-01-17 12:28 | XMS_ITS | Patient Health Record ---
Author Organization [facility] Address [address] [place] [address] Care Team Providers Care Driller Machine Name Role Phone Sumit (RETIRED) Reymundo MAE Primary Care Provider Unavailable Denis Rmaos Unavailable [phone] Allergies Allergen (clinical drug ingredient) Drug/Non Drug [...] Problem Status W/U Status Risk Notes Problem [id number] Encounter for screening for malignant neoplasm of colon (Z12.11) Active confirmed Problem Screening for malignant neoplasm of rectum ([id number]) Encounter for screening for malignant neoplasm of rectum (Z12.12) Active confirmed Problem [id number] Preprocedural examination (Z01.818) Active confirmed Plan Of Treatment Future Test Test Name Order Date COLONOSCOPY 11/03/2015 Insurance Providers Payer Name Payer Address Payer Phone Subscriber Number Group Number Insured Name Patient Relationship to Insured Coverage Start Date Coverage End Date [facility] [address] [facility] [place] [phone] [id number] PEACE ZELAYA Self - patient is the insured Medical (General) History Medical History History ICD Code Screening colonoscopy 09-01-2006--negativ e except for internal hemorrhoids Denies SD,DM,CVA,Lung disease,renal dise ase Hypercholesterolemia Depression/anxiety
--- OUTSIDE RECORDS SUMMARY | 2025-01-17 12:28 | XMS_ITS | Clinical Summary ---
Author Organization [facility] ity Address [address] [place] [address] Care Team Providers Care Front Sight Attacher Name Role Phone Reymundo Arana MD Primary Care Provider [phone] Surgical History Surgery Date Site/Laterality Comments OTHER SURGICAL HISTORY 02/18/2020 PROCEDURE: [place] ARTHRODESIS POSTERIOR INTERBODY 1 NTRSPC LUMBAR; COMMENT: [...] Panel) 04/24/2022 Colorectal Cancer Screening: Colonoscopy 04/24/2022 Falls Risk Assessment 04/24/2022 Hepatitis C Screening 04/24/2022 Social Influencers of Health Screening 04/24/2022 COVID-19 Vaccine ( - 2023- season) 2024 05/13/2021, 09/30/2020, 09/02/2020 Depression Screening 05/22/2024 Influenza Vaccine (#1) 2025 , 04/07/2020, 06/25/2019, [...] age to complete this topic Care Teams Front Sight Attacher Relationship Specialty Start Date End Date Reymundo Arana MD [address] [place] [address] [place] [id number] PCP - General Internal Medicine 10/07/21
--- OUTSIDE RECORDS SUMMARY | 2025-01-17 12:28 | XMS_ITS | Clinical Summary ---
Author Organization [facility] Address [address] [place] [address] Care Team Providers Care Group Sales Manager Name Role Phone Reymundo Arana MD Primary Care Provider [phone] Social History Tobacco Use Types Packs/Day Years [...] age to complete this topic Care Teams Group Sales Manager Relationship Specialty Start Date End Date Reymundo Arana MD [address] [place] [address] [place] [address] PCP - General Internal Medicine 12/03/19
== END ==
LOC: HO.HMCHD 11:27
PROVIDERS: PCP Family Medicine; Visit Provider Student in an Organized Health Care Education/Training Program
DX: C61 Malignant neoplasm of prostate (principal); E78.5 Hyperlipidemia, unspecified; F32.A Depression, unspecified; I10 Essential (primary) hypertension; M79.641 Pain in right hand; M79.642 Pain in left hand; Z00.00 Encounter for general adult medical examination without abnormal findings

== ENCOUNTER 2025-02-18 10:11 | Day surgery (SDC) | payer MEDICARE, SELFPAY ==
--- OUTSIDE RECORDS SUMMARY | 2025-02-13 16:57 | XMS_ITS | Clinical Summary ---
Author Organization [facility] Address [address] [place] [address] Care Team Providers Care Buyer Tobacco Head Name Role Phone Reymundo Arana MD Primary Care Provider [phone] Social History Tobacco Use Types Packs/Day Years [...] age to complete this topic Care Teams Buyer Tobacco Head Relationship Specialty Start Date End Date Reymundo Arana MD [address] [place] [address] [place] [address] PCP - General Internal Medicine 12/03/19
--- OUTSIDE RECORDS SUMMARY | 2025-02-13 16:57 | XMS_ITS | Patient Health Record ---
Author Organization [facility] Address [address] [place] [address] Care Team Providers Care Jacquard Loom Weaver Name Role Phone Sumit (RETIRED) Reymundo MAE Primary Care Provider Unavailable Denis Ramos Unavailable [phone] Allergies Allergen (clinical drug ingredient) Drug/Non Drug [...] Problem Status W/U Status Risk Notes Problem [id number] Encounter for screening for malignant neoplasm of colon (Z12.11) Active confirmed Problem Screening for malignant neoplasm of rectum ([id number]) Encounter for screening for malignant neoplasm of rectum (Z12.12) Active confirmed Problem [id number] Preprocedural examination (Z01.818) Active confirmed Plan Of Treatment Future Test Test Name Order Date COLONOSCOPY 11/03/2015 Insurance Providers Payer Name Payer Address Payer Phone Subscriber Number Group Number Insured Name Patient Relationship to Insured Coverage Start Date Coverage End Date [facility] [address] [facility] [place] [phone] [id number] PEACE ZELAYA Self - patient is the insured Medical (General) History Medical History History ICD Code Screening colonoscopy 09-01-2006--negativ e except for internal hemorrhoids Denies ME,DM,CVA,Lung disease,renal dise ase Hypercholesterolemia Depression/anxiety
--- NOTE | 2025-02-17 10:37 | HO.ANESPROP2 ---
Documented by User: Radha Alvarez NP 02/17/25 10:41 HPI - Anesthesia Eval Consult details Narrative: 69 yr old male for colonoscopy s/p prostatectomy in 2020 [facility] Active Problems Active Problems: All Active Problems (Updated 01/17/25 @ 11:59 by Nate Quiroz MD) Bilateral hand pain (Acute) Hypertension (Acute) Depression (Acute) Hyperlipidemia (Acute) Nocturia more than twice per night (Acute) Rising PSA following treatment for malignant neoplasm of prostate (Acute) Cancer of prostate with intermediate recurrence risk, stage T2B-C or Alva 7 or prostate-specific antigen (PSA) 10-20 (Acute) Erectile dysfunction due to arterial insufficiency (Acute) Prostate cancer (Acute) Past Medical History Medical History Prostate CA Bilateral hand pain Hypertension Depression Anxiety Nocturia Hyperlipidemia GERD (gastroesophageal reflux disease) Benign prostatic hyperplasia with lower urinary tract symptoms Back pain with history of spinal surgery High cholesterol Surgical History Surgical History Hx of LASIK H/O prostatectomy History of colonoscopy (~02/09/16) History of surgery Previous back surgery Social History Social History Housing: House Patient Tobacco Use Status: Former Tobacco user Tobacco use type: Cigarette e-Cigarette/Vaping Use: Never Used Use of substances other than those prescribed or required for medical reasons: No Are you DNR?: No Advance Directives: No Advance Directives Information Provided: Yes Poor oral hygiene: No service: No Current occupational status: unemployed Meds Allergies Allergy/AdvReac Type Severity Reaction Status Date / Time No Known Allergies (No Known Allergy Verified 01/17/25 11:30 Allergies*) Home Medications ?Medication ?Instructions ?Recorded ?Confirmed ?Last Taken ?Type atorvastatin 20 mg tablet 20 mg PO BEDTIME 07/06/21 02/18/25 Unknown History bupropion HCl 300 mg 24 hr tablet, 300 mg PO QAM 07/06/21 02/18/25 Unknown History extended release diltiazem HCl 120 mg capsule,24 120 mg PO DAILY 07/06/21 02/18/25 Unknown History hr,extended release lorazepam 1 mg tablet 1 mg PO TID 07/06/21 02/18/25 Unknown History zolpidem 12.5 mg tablet,extended 12.5 mg PO BEDTIME 07/06/21 02/18/25 Unknown History release,multiphase quetiapine 300 mg tablet 300 mg PO BEDTIME 03/10/23 02/18/25 Unknown History Documented by User: Almas Mandel MD 02/18/25 13:29 [facility] Past Medical History Medical History Prostate CA Bilateral hand pain Hypertension Depression Anxiety Nocturia Hyperlipidemia GERD (gastroesophageal reflux disease) Benign prostatic hyperplasia with lower urinary tract symptoms Back pain with history of spinal surgery High cholesterol Family History Family history of problems with anesthesia: No Surgical History Surgical History Hx of LASIK H/O prostatectomy History of colonoscopy (~02/09/16) History of surgery Previous back surgery History of Problems with Anesthesia: No Social History Social History Housing: House Patient Tobacco Use Status: Former Tobacco user Tobacco use type: Cigarette e-Cigarette/Vaping Use: Never Used Use of substances other than those prescribed or required for medical reasons: No Are you DNR?: No Advance Directives: No Advance Directives Information Provided: Yes Poor oral hygiene: No service: No Current occupational status: unemployed Meds Allergies Allergy/AdvReac Type Severity Reaction Status Date / Time No Known Allergies (No Known Allergy Verified 01/17/25 11:30 Allergies*) Home Medications ?Medication ?Instructions ?Recorded ?Confirmed ?Last Taken ?Type atorvastatin 20 mg tablet 20 mg PO BEDTIME 07/06/21 02/18/25 Unknown History bupropion HCl 300 mg 24 hr tablet, 300 mg PO QAM 07/06/21 02/18/25 Unknown History extended release diltiazem HCl 120 mg capsule,24 120 mg PO DAILY 07/06/21 02/18/25 Unknown History hr,extended release lorazepam 1 mg tablet 1 mg PO TID 07/06/21 02/18/25 Unknown History zolpidem 12.5 mg tablet,extended 12.5 mg PO BEDTIME 07/06/21 02/18/25 Unknown History release,multiphase quetiapine 300 mg tablet 300 mg PO BEDTIME 03/10/23 02/18/25 Unknown History Exam Exam Date and Time: 02/18/2025 Airway TM Dist: >3cm Neck ROM: Full Heart: NSR Lungs: ctab vesicular Assessment and Plan Assessment Anesthesia Assessment: Anesthesia Plan Discussed Final Anesthetic Review Family History of Problems with Anesthesia: No History of Problems with Anesthesia: No NPO: Yes ASA Class: II Final Preanesthetic Review: Meds/Allgs Chart Reviewed and Consent Obtained/Reviewed Patient Risk: Low Procedure Risk: Low Anesthetic Plan Anesthetic Plan: MAC: Disposition: Standard PACU
[2025-02-18 12:00] VITALS: BMI 28.2
[2025-02-18 12:09] VITALS: BP 125/84; PULSE 82; RESP 16; TEMP 36.1; O2SAT 98
[2025-02-18] MEDS: Lactated Ringers 1,000 ML 100 ML IVCONT (12:37)
--- NOTE | 2025-02-18 13:16 | P.HPSUR_ITS ---
Pre-Procedural Eval Section A - 24 Hr Update-Section A only Date of Service: 02/18/25 Section B - Complete if H&P > 30 days Chief Complaint: screening Relevant Family History (Specify if Yes): No Relevant Social History: None Present Medications: see Short Stay Collaborative assessment Medical History: Significant History (Bilateral hand pain Hypertension Depression Anxiety Nocturia Hyperlipidemia GERD (gastroesophageal reflux disease) Benign prostatic hyperplasia with lower urinary tract symptoms Back pain with history of spinal surgery High cholesterol) History of Previous Operations: Relevant previous surgery/procedure and date(s) (History of colonoscopy (~02/09/16) History of surgery Previous back surgery) Allergies: Allergies Allergy/AdvReac Type Severity Reaction Status Date / Time No Known Allergies (No Known Allergy Verified 01/17/25 11:30 Allergies*) Review of Systems Sugical H&P ROS: Negative: Constitution, Cardiovascular, Respiratory, Neurological, Psychiatric, Hem-Onc, Allergic/Immunologic, Gastrointestinal, Genitourinary, Musculoskeletal, Integumentary, Endocrine and Eyes/Ears/Nose/Throat Exam Surgical H&P Exam: Normal: HEENT, Normal: Heart, Normal: Lungs, Normal: Extrem ities, Normal: Abdomen, Normal: Skin and Normal: Neurological Plan Diagnosis/Plan: Unchanged I have reviewed the history and physical and performed a pertinent physical examination on my patient. No changes have occurred unless specified. Time Spent With Patient Time: Total time managing care of this patient today ____ minutes.
--- NOTE | 2025-02-18 13:55 | P.OPN-COLO_ITS ---
Colonoscopy Operative Note Operative Note Date of Service: 02/18/25 Narrative: Operative Information Procedure Description: Colonoscopy Indication: screening Anesthesia: MAC COLONOSCOPY Instrument: Olympus variable stiffness pediatric scope 190L Colonoscopy Monitoring: Vital signs and clinical assessment, continuous EKG monitoring, Pulse oximetry, Carbon Dioxide monitoring and blood pressure monitoring were done throughout the procedure. Colon withdrawal time was 10 minutes. Procedure: The patient was placed in the left lateral decubitis position and pre-procedure medications were administered. After a digital rectal examination of the ano-rectum, the video colonoscope was inserted into the rectum and advanced through the colon to the cecum/TI. The colonoscope was slowly withdrawn in a retrograde panoramic fashion and the colon mucosa was carefully examined including a retroflexed view of the rectum. Findings and interventions are described below. Procedure Difficulty: easy Findings: Terminal Ileum-normal Cecum:normal Right sided retroflexion, normal Ascending Colon: x 2 sessile polyps 5-7 mm removed with cold forceps, x1 sessile polyp 6-8 mm removed with cold snare Transverse Colon -normal Descending Colon:normal Sigmoid Colon: mild diverticulosis Rectum: Retroflexion with small internal hemorrhoids seen, grade I Anorectum - normal Intervention: cold forceps, cold snare Colon preparation: [place] Bowel Preparation Scale Right colon; 2 Transverse colon: 2 Left colon; 2 (0 = Unprepared colon segment with mucosa not seen due to solid stool that cannot be cleared. 1 = Portion of mucosa of the colon segment seen, but other areas of the colon segment not well seen due to staining, residual stool and/or opaque liquid. 2 = Minor amount of residual staining, small fragments of stool and/or opaque liquid, but mucosa of colon segment seen well. 3 = Entire mucosa of colon segment seen well with no residual staining, small fragments of stool or opaque liquid) Impression and Post Procedure Diagnosis: diverticulosis colon polyps x3 internal hemorrhoids Plan: High fiber diet leaflet Avoid straining at stool, epsom salts and sitz bath, anusol supps or cream Repeat Colonoscopy in 5 years or earlier if clinically indicated Above findings were reviewed with the patient and relevant handouts were provided if indicated.
[2025-02-18 14:00] VITALS: BP 121/81; PULSE 102; RESP 12; TEMP 36.1; O2SAT 95
[2025-02-18 14:15] VITALS: BP 135/82; PULSE 99; RESP 18; TEMP 36; O2SAT 96
== END 2025-02-18 14:37 | disposition home or self-care (01) ==
PROVIDERS: PCP Internal Medicine; Visit Provider Internal Medicine Gastroenterology
PROC: 0DJD8ZZ Inspection of Lower Intestinal Tract, Via Natural or Artificial Opening Endoscopic (ICD-10-PCS; CPT 45378; principal; 2025-02-18 14:20)
DX: Z12.11 Encounter for screening for malignant neoplasm of colon (principal); K57.30 Diverticulosis of large intestine without perforation or abscess without bleeding; K64.8 Other hemorrhoids; D12.2 Benign neoplasm of ascending colon
CPT/HCPCS: 45380; 45385; 88305; J2003; J2704; J3010

== ENCOUNTER → 2025-02-18 10:11 | Outpatient (BNV) | payer MEDICARE, SELFPAY | PROVIDERS: PCP Internal Medicine; Visit Provider Internal Medicine Gastroenterology | DX: Z12.11 Encounter for screening for malignant neoplasm of colon (principal); D12.2 Benign neoplasm of ascending colon; K57.30 Diverticulosis of large intestine without perforation or abscess without bleeding; K64.0 First degree hemorrhoids | CPT/HCPCS: 45385 ==

== ENCOUNTER 2025-03-24 07:08 | Outpatient (REF) | payer MEDICARE, SELFPAY ==
--- OUTSIDE RECORDS SUMMARY | 2025-03-24 07:13 | XMS_ITS | Clinical Summary ---
Author Organization [facility] ity Address [address] [place] [address] Care Team Providers Care Content Assistant Name Role Phone Reymundo Arana MD Primary Care Provider [phone] Surgical History Surgery Date Site/Laterality Comments OTHER [...] Health Maintenance Due Date Last Done Comments Colorectal Cancer Screening: Colonoscopy 1955 Pneumococcal Vaccine: 50+ Years (1 of 1 - PCV) 08/24/2005 Abdominal Aortic Aneurysm (AAA) Screen 04/24/2022 Cholesterol Screening (Lipid Panel) 04/24/2022 Falls Risk Assessment 04/24/2022 Hepatitis C Screening 04/24/2022 Social Influencers of Health Screening 04/24/2022 Depression Screening 05/22/2024 COVID-19 Vaccine ( season) 2025 05/13/2021, 09/30/2020, 09/02/2020 Influenza Vaccine (#1) 2025 [...] age to complete this topic Care Teams Content Assistant Relationship Specialty Start Date End Date Reymundo Arana MD [address] [place] [address] [place] [address] PCP - General Internal Medicine 10/07/21
--- OUTSIDE RECORDS SUMMARY | 2025-03-24 07:13 | XMS_ITS | Patient Health Record ---
Author Organization [facility] Address [address] [place] [address] Care Team Providers Care Steam And Gas Turbine Assembler Name Role Phone Sumit (RETIRED) Reymundo MAE Primary Care Provider Unavailable Denis Ramos Unavailable [phone] Allergies Allergen (clinical drug ingredient) Drug/Non Drug [...] Problem Status W/U Status Risk Notes Problem Screening for malignant neoplasm of colon (275364671) Encounter for screening for malignant neoplasm of colon (Z12.11) Active confirmed Problem Screening for malignant neoplasm of rectum (490268725) Encounter for screening for malignant neoplasm of rectum (Z12.12) Active confirmed Problem Preprocedural examination (784272347572105) Preprocedural examination (Z01.818) Active confirmed Plan Of Treatment Future Test Test Name Order Date COLONOSCOPY 11/03/2015 Insurance Providers Payer Name Payer Address Payer Phone Subscriber Number Group Number Insured Name Patient Relationship to Insured Coverage Start Date Coverage End Date [facility] [address] [place] [facility] [phone] [id number] PEACE ZELAYA Self - patient is the insured Medical (General) History Medical History History ICD Code Screening colonoscopy 09-01-2006--negativ e except for internal hemorrhoids Denies [place],DM,CVA,Lung disease,renal dise ase Hypercholesterolemia Depression/anxiety
--- OUTSIDE RECORDS SUMMARY | 2025-03-24 07:13 | XMS_ITS | Clinical Summary ---
Author Organization [facility] Address [address] [place] [address] Care Team Providers Care Wind Turbine Mechanic Name Role Phone Reymundo Arana MD Primary Care Provider [phone] Social History Tobacco Use Types Packs/Day Years [...] age to complete this topic Care Teams Wind Turbine Mechanic Relationship Specialty Start Date End Date Reymundo Arana MD [address] [place] [address] [place] [address] PCP - General Internal Medicine 12/03/19
[2025-03-24 07:22] LABS: MANUAL DIFF FLAG NO
[2025-03-24 07:52] LABS: Hematocrit 42.9 % (42.0-52.0); Hemoglobin 14.4 g/dl (14.0-18.0); Imm Gran Abs Auto 0.03 X10*3/uL (0.00-0.03); Imm Gran Pct Auto 0.5 % (0.0-0.4); Lymphocytes Absolute Auto 1.1 X10*3/uL (1.2-4.9); Mean Corpuscular HGB Conc 33.6 g/dl (31.0-36.0); Mean Corpuscular Hemoglobin 30.8 pg (27.0-33.0); Mean Corpuscular Volume 91.9 fL (80.0-98.0); NRBC Abs Auto 0.000 X10*3/uL (0.0-0.012); NRBC Pct Auto 0.0 /100WBC (0.0-0.2); Platelet Count 329 X10*3/uL (160-400); Red Blood Count 4.67 X10*6/uL (4.60-5.80); White Blood Count 6.4 X10*3/uL (4.8-10.8)
[2025-03-24 08:28] LABS: Alanine Aminotransferase 32 U/L (0-40); Albumin Level 4.5 g/dL (3.5-5.0); Alkaline Phosphatase 112 U/L (39-117); Anion Gap 11 (12-20); Aspartate Amino Transferase 36 U/L (5-37); Blood Urea Nitrogen 9 mg/dL (9-16); Calcium 8.7 mg/dL (8.4-10.2); Carbon Dioxide 25 mmol/L (22-29); Chloride 108 mmol/L (96-108); Cholesterol 150 mg/dL (<200); Estimated Glomerular Filt Rate > 60; HDL Cholesterol 53 mg/dL (>40); Potassium 4.0 mmol/L (3.3-5.1); Sodium 140 mmol/L (135-145); Total Protein 6.6 g/dL (6.5-8.0); Triglycerides 72 mg/dL (<150)
[2025-03-24 08:39] LABS: Syphilis Screen Nonreactive (Nonreactive)
[2025-03-24 08:40] LABS: Prostate Specific Antigen < 0.10 ng/mL (<0.05-4.0)
[2025-03-24 08:43] LABS: HBS Num1 0.81 mIU/mL (0-7.99); HBc Num1 0.05 S/CO (0.00-0.79); HBsAGNum1 0.34 S/CO (0.00-0.99); HIV Num 1 0.05 S/CO (0.00-0.99); Hepatitis A Antibody IgM 0.11 Index (0-0.79); Hepatitis B Surface Antigen Negative (Negative); ~HepC Num1 0.07 S/CO (0.00-0.79); ~Hepatitis A Antibody IgM Nonreactive (Nonreactive); ~Hepatitis B Surface Antibody NONREACTIVE (Nonreactive); ~Hepatitis C Antibody Nonreactive (Nonreactive)
== END 2025-03-24 07:09 | disposition home or self-care (01) ==
LOC: HO.LAB 07:08
PROVIDERS: PCP Student in an Organized Health Care Education/Training Program; Visit Provider Urology
DX: I10 Essential (primary) hypertension (principal); E78.5 Hyperlipidemia, unspecified; Z12.11 Encounter for screening for malignant neoplasm of colon; R97.21 Rising PSA following treatment for malignant neoplasm of prostate; Z12.5 Encounter for screening for malignant neoplasm of prostate; Z13.1 Encounter for screening for diabetes mellitus; Z11.4 Encounter for screening for human immunodeficiency virus [HIV]
CPT/HCPCS: 36415; 80053; 80061; 82306; 83036; 84153; 84403; 84443; 85025; 86704; 86706; 86709; 86780; 86803; 87340; 87389

== ENCOUNTER 2025-04-10 09:46 | Outpatient (AMB) | payer MEDICARE, SELFPAY ==
--- NOTE | 2025-04-10 09:52 | MHC.PC.OV ---
Vital Signs 04/10/25 09:54 Height 5 ft 11 in Weight 202 lb BMI 28.2 BP 116/78 Blood Pressure Location Lt brachial Position Sitting Respiration 18 Pulse 81 Pulse Source Pulse Oximeter Temp 97.8 F Temp Source Temporal Artery Scan Pulse Oximetry (%) 98 Oxygen Delivery Method Room Air Intake Visit Reasons: Spots on Arm Accompanied by: Self / Same As Patient Allergies No Known Allergies (No Known Allergies*) Allergy (Verified 04/10/25 09:52) Tobacco use date assessed: 01/17/25 Dental Screening Dental Screen Date: 04/10/25 Did you have a dental visit in the last 12 months?: Yes Did you have a dental problem in the last 6 months where you did not have access to dental care?: No Was dental information given to patient?: Patient has dentist HPI HPI Comments History of Present Illness Details History of Present Illness The patient is a 69 year old individual presenting with multiple skin lesions. The patient reports feeling generally unwell and has developed multiple lesions on the legs, buttocks, back, and neck. These lesions have occurred off and on in the past but have become more prevalent and persistent over the last month. They are described as annoying but not significantly itchy and rarely bleed. The patient denies any known mosquito bites, fever, or chills and is unsure of the cause. The patient recalls having a tick on the neck about six to eight months ago and has a persistent lesion in that area that occasionally bleeds with shaving. The patient also reports issues with nocturia, stating that the previous night required getting up five times to urinate. The patient has an upcoming appointment with a urologist, Dr. Siddiqui, to discuss this. The patient's chronic conditions include hypertension, hyperlipidemia, bladder issues, insomnia, and mood/anxiety disorders, which are managed with medication. Medical History: - History of left knee problem, which improved after a medical assisted intervention. - History of a tick bite approximately 6-8 months ago. - Hypertension - Hyperlipidemia - Mood and anxiety disorder - Insomnia - Bladder condition with nocturia Medications: - Atorvastatin for cholesterol - Diltiazem 120 mg for blood pressure - Tamsulosin for bladder issues - Zolpidem for sleep - Quetiapine 300 mg for mood and anxiety - Lorazepam 1 mg three times a day for mood and anxiety Social History - The patient lives with a girlfriend, who does not have similar skin lesions. - Reports washing bed sheets every week. - The patient typically wears shorts to sleep. - Avoids drinking fluids after 9:00 PM. [facility] Medical History (Updated 04/10/25 @ 10:30 by Nate Quiroz MD) Skin lesion JANET (obstructive sleep apnea) Vitamin D deficiency Prostate CA Bilateral hand pain Hypertension Depression Anxiety Nocturia Hyperlipidemia GERD (gastroesophageal reflux disease) Benign prostatic hyperplasia with lower urinary tract symptoms Back pain with history of spinal surgery High cholesterol Surgical History (Updated 04/09/25 @ 15:47 by Lindsey Gross) Hx of LASIK H/O prostatectomy History of colonoscopy (~02/18/25) History of surgery Previous back surgery Social History Housing: House Patient Tobacco Use Status: Former Tobacco user Tobacco use type: Cigarette e-Cigarette/Vaping Use: Never Used service: No Current occupational status: unemployed Questionnaire Thrive Questionnaire Date Thrive assessed: 01/17/25 SUNDEEP-7 AMB Questionnaire SUNDEEP-7 Date SUNDEEP - 7 assessed: 01/17/25 Source: Developed by Drs. Denis Corea, Vicki Rios, Elder Juarez and colleagues, with an educational odette from [employer]. Review of Systems Narrative Review of Systems - Constitutional: Reports feeling crummy. - Denies fever or chills. - Integumentary: Reports multiple persistent lesions on the legs, buttocks, back, and neck for the past month. - The lesions are described as annoying but not significantly itchy. - Reports a neck lesion that may bleed with shaving. - Genitourinary: Reports nocturia, with episodes of waking up to five times a night to urinate. All systems reviewed & are unremarkable except as reviewed in HPI and above Physical exam (Primary Care) Vital Signs: Last Vital Signs Temp 97.8 F 04/10/25 09:54 Pulse 81 04/10/25 09:54 Resp 18 04/10/25 09:54 BP 116/78 04/10/25 09:54 Pulse Ox 98 04/10/25 09:54 Oxygen Delivery Method Room Air 04/10/25 09:54 BMI result Body Mass Index 28.2 Tobacco/Smoking Status: Tobacco use Status Tobacco use date assessed 01/17/25 04/10/25 10:01 Patient Tobacco Use Status Former Tobacco user 04/10/25 10:01 Tobacco use type Cigarette 04/10/25 10:01 e-Cigarette/Vaping Use Never Used 04/10/25 10:01 Thrive Assessment: Date of Thrive Assessment Date Thrive assessed 01/17/25 04/10/25 10:01 Narrative Physical Exam General: +Alert and oriented, Well nourished, No acute distress. Eye: Pupils are equal, round and reactive to light, Intact accommodation, Extraocular movements are intact, Normal conjunctiva, Vision unchanged. HENT: Normocephalic, Atraumatic, Tympanic membranes are clear, Normal hearing, Oral mucosa is moist, No pharyngeal erythema, Ear canals patent. Respiratory: Lungs CTA bilaterally, No wheeze, Respirations are non-labored. Cardiovascular: Regular rate, Regular rhythm, S1 auscultated, S2 auscultated, No murmur, Good pulses equal in all extremities, Normal peripheral perfusion, No edema. Gastrointestinal: Soft, Non-tender, Non-distended, Normal bowel sounds, No organomegaly. Musculoskeletal: Normal range of motion, Normal strength, No tenderness, No swelling, No deformity, Normal gait. Integumentary: Warm, Dry, [place], Intact, Multiple lesions noted on legs, buttocks, lower back, neck, and right forearm, mildly raised, not itchy, possibly insect bites. Neurologic: Alert, Oriented, Normal sensory, Normal motor function, No focal defects, Cranial Nerves II-XII are grossly intact, Normal deep tendon reflexes. Psychiatric: Cooperative, Appropriate mood & affect, Normal judgment. Coding Level of Care Code Est Pt Level 4 (54114) Complex EM visit Add On G2211 Diagnoses Skin lesion L98.9 Nocturia more than twice per night R35.1 Primary hypertension I10 Hypertension type: primary hypertension Other hyperlipidemia E78.49 Hyperlipidemia type: other hyperlipidemia Assessment & Plan Assessment & Plan (1) Skin lesion: Comment: - The leading differential diagnosis is insect bites due to the distribution of lesions on exposed skin areas; bed bugs are a consideration. - The patient was reassured that MRSA is unlikely given the presentation. - Prescribed mupirocin cream for topical application twice a day. - Prescribed doxycycline 100 mg twice daily for 7-10 days as a precaution, given the history of a tick bite and to treat any potential cvmnfe-whyy-auzlvae infection. - Advised the patient to inspect the home for insects. - If symptoms worsen or do not resolve, a referral to dermatology will be made. Code(s): L98.9 - Disorder of the skin and subcutaneous tissue, unspecified Category: Medical (2) Nocturia more than twice per night: Comment: - The patient reports worsening nocturia, getting up to five times on a recent night. - The patient will follow up with the urologist, Dr. Siddiqui, next week to discuss management, including potential adjustments to tamsulosin. - Management of this condition will be deferred to urology. Code(s): R35.1 - Nocturia Category: Medical (3) Hypertension: Comment: - Blood pressure readings stable today; continue current antihypertensive regimen. - To continue on diltiazem Code(s): I10 - Essential (primary) hypertension Category: Medical Qualifiers: Hypertension type: primary hypertension Qualified Code(s): I10 - Essential (primary) hypertension (4) Hyperlipidemia: Comment: - Cholesterol management with atorvastatin; monitor lipid profile with upcoming blood work. Code(s): E78.5 - Hyperlipidemia, unspecified Category: Medical Qualifiers: Hyperlipidemia type: other hyperlipidemia Qualified Code(s): E78.49 - Other hyperlipidemia Plan: Health Maintenance: - The patient is scheduled for a follow-up appointment in July of next year. - The patient will follow up with urology specialist Dr. Siddiqui next week for management of nocturia. Patient was informed and verbally consented to the use of an ambient scribe for clinic note documentation during this visit. Plan I discussed with the patient that the multiple skin lesions are most likely due to insect bites, given their distribution on exposed areas of skin. I reassured the patient that the rash is unlikely to be MRSA. I prescribed mupirocin topical cream and a course of doxycycline as a precaution for any underlying bacterial or tick-borne infection. I advised the patient to investigate the home for potential sources of bites, such as bed bugs. We reviewed the patient's nocturia, and I recommended discussing it with the urologist, Dr. Siddiqui, at the upcoming appointment for further management. We confirmed the patient's current medication regimen for chronic conditions. The plan is to follow up in July, but the patient was instructed to contact the office if the skin condition worsens. Medications: New mupirocin 2% (Centany) 1 appl topical BID 22 grams 3RF doxycycline hyclate 100 mg PO BID 20 caps 0RF Patient Instructions: - Apply the mupirocin cream to the skin sores twice a day. - Take one capsule of doxycycline (100 mg) two times a day for 7-10 days, as this may help with infection from insect bites. - Check your home, especially your bed and bedding, for any signs of small insects. - Continue taking your regular medications for blood pressure, cholesterol, mood, and sleep as prescribed. - Be sure to discuss your issue with waking up at night to urinate with your bladder specialist, Dr. Siddiqui, at your appointment next week. - If your skin sores get worse or do not start to get better, please call our office. - Your next follow-up visit with us is scheduled for July of next year.
[2025-04-10 09:54] VITALS: BP 116/78; PULSE 81; RESP 18; TEMP 36.6; O2SAT 98; BMI 28.2
== END 2025-04-10 10:17 | disposition home or self-care (01) ==
LOC: HO.HMCHD 09:46
PROVIDERS: PCP Student in an Organized Health Care Education/Training Program; Visit Provider Student in an Organized Health Care Education/Training Program
DX: L98.9 Disorder of the skin and subcutaneous tissue, unspecified (principal); R35.1 Nocturia; I10 Essential (primary) hypertension; E78.49 Other hyperlipidemia

== ENCOUNTER → 2025-04-10 09:46 | Outpatient (BNVA) | payer MEDICARE, SELFPAY | PROVIDERS: PCP Student in an Organized Health Care Education/Training Program; Visit Provider Student in an Organized Health Care Education/Training Program | DX: L98.9 Disorder of the skin and subcutaneous tissue, unspecified (principal); R35.1 Nocturia; I10 Essential (primary) hypertension; E78.49 Other hyperlipidemia; E78.5 Hyperlipidemia, unspecified | CPT/HCPCS: 99212 ==

== ENCOUNTER 2025-04-15 09:20 | Outpatient (AMB) | payer MEDICARE, SELFPAY ==
--- NOTE | 2025-04-15 09:28 | A.OFFVIS_ITS ---
Intake Visit Reasons: 4M PSA/Testo Intake Note: Patient is present for 4M/PSA/TESTO Urology Medication:TOLTERODINE,TAMSULOSIN Antibiotic Allergy:NONE Blood Thinner:NONE Hvac Service Tech Required: No Allergies No Known Allergies (No Known Allergies*) Allergy (Verified 04/15/25 09:30) HPI Comments Details: Rianna is a pleasant male. He is a patient Dr. Arana. He is seen for the following urologic conditions - prostate cancer - delayed failure PSA rise - erectile dysfunction Follow-up for prostate cancer PSA remains low, testosterone fully recovered Had been on 4 mg tolterodine for nocturia Only marginal benefit - still waking 3-4 times per night Trial Toviaz Three-month follow-up 04/15 <0.1 595 12/13 <0.1, T 95 07/16 <0.1 T 19 03/14 <0.1 Biochemical recurrence - salvage radiation 10/12 Continued slow rise in PSA to 0.2 [place] 3 + 4 - short term GnRH manipulation Imaging - 04/13 [facility] - PET-CT - no evidence of recurrence Prostate cancer [place] 3 + 4 robotic prostatectomy [facility] [address] Pruitt Original biopsy [place] 3 + 4 with 3 biopsies on left 90% volume - - pT1c, Grade Group 3 Initial therapy robotic prostatectomy [facility] 2018 PSA 06/12 <0.1, 01/10 0.05, 05/12 <0.1, 11/11 0.12, 03/13 0.17, 09/12 0.2 Imaging - 04/13 [facility] - PET-CT - no evidence of recurrence Erectile dysfunction Post prostatectomy Small amount of activity Trial daily Cialis to maximize potential recovery No current partner PFSH Medical History (Updated 04/15/25 @ 17:22 by Mckinley Siddiqui MD) Skin lesion JANET (obstructive sleep apnea) Vitamin D deficiency Prostate CA Bilateral hand pain Hypertension Depression Anxiety Nocturia Hyperlipidemia GERD (gastroesophageal reflux disease) Benign prostatic hyperplasia with lower urinary tract symptoms Back pain with history of spinal surgery High cholesterol Surgical History (Updated 04/09/25 @ 15:47 by Lindsey Gross) Hx of LASIK H/O prostatectomy History of colonoscopy (~02/18/25) History of surgery Previous back surgery Social History Housing: House Patient Tobacco Use Status: Former Tobacco user Tobacco use type: Cigarette e-Cigarette/Vaping Use: Never Used service: No Current occupational status: unemployed Review of Systems Const Denies chills and Denies fever(s) Card Reports no additional complaints and Denies syncope Resp Denies cough GI Denies abdominal pain and Denies heartburn Reports as per HPI and Denies change in libido Neuro Denies syncope Psych Denies change in libido Endo Denies change in libido Physical Exam Const General: cooperative, healthy appearing, comfortable and no acute distress Orientation/consciousness: patient oriented x3 HEENT Face and sinus: Yes normal facial exam Mouth: moist mucous membranes Neck Neck: Yes normal visual inspection, Yes full ROM and Yes trachea midline Chest Chest palpation & inspection: normal inspection of the chest Resp Effort & Inspection: normal respiratory effort, able to speak in complete sentences and no respiratory distress GI Inspection: Yes normal to inspection Back/Spine/Pelvis Cervical Spine: normal cervical lordosis Thoracic/Lumbar Spine: thoracic and lumbar spine normal to inspection Skin General skin exam: no rashes or lesions noted Neuro General: patient oriented x3, gait normal, tone normal and moves all extremities Extrem General: Yes normal to inspection and Yes capillary refill normal Assessment & Plan Assessment & Plan (1) Prostate cancer: Comment: 2019 prostatectomy [facility] and post radiation Code(s): C61 - Malignant neoplasm of prostate Category: Medical (2) Erectile dysfunction due to arterial insufficiency: Code(s): N52.01 - Erectile dysfunction due to arterial insufficiency Category: Medical (3) Nocturia more than twice per night: Code(s): R35.1 - Nocturia Category: Medical (4) Urinary urgency: Code(s): R39.15 - Urgency of urination Category: Medical Plan Trial Toviaz (not covered trial Gemtesa) Three-month follow-up Medications: New vibegron 75 mg PO DAILY 30 tabs 2RF 30 days R39.15 - Urgency of urination Patient Instructions: This note is constructed using voice recognition software. While every effort has been made to ensure accuracy button inspector errors may have been included. Imaging studies, laboratory and physical exam results were discussed and reviewed in detail. No major barriers to patient understanding were identified. An opportunity to ask questions regarding the treatment plan was provided. All questions were answered. The patient expressed understanding and agreement with the above treatment plan. The patient is aware they should contact our office by phone for worsening of th eir current condition or the appearance of new urologic symptoms. Compliance is encouraged with any medications and followup testing that is ordered. It is a privilege to participate in the urologic care of your patient. If you have any questions or concerns regarding treatment for the above conditions, or other urologic issues, please do not hesitate to contact me. The office telephone contact is [phone]. Sincerely, Dr Mckinley Siddiqui MD, [facility] - Urology Compassionate Specialist Care for the Genitourinary System Coding Level of Care Code Est Pt Level 4 (84941) Diagnoses Prostate cancer C61 Erectile dysfunction due to arterial insufficiency N52.01 Nocturia more than twice per night R35.1 Urinary urgency R39.15
--- OUTSIDE RECORDS SUMMARY | 2025-04-15 10:31 | XMS_ITS | Clinical Summary ---
Author Organization [facility] ity Address [address] [place] [address] Care Team Providers Care Operations Asst Name Role Phone Reymundo Arana MD Primary Care Provider [phone] Surgical History Surgery Date Site/Laterality Comments OTHER SURGICAL HISTORY 02/18/2020 PROCEDURE: [place] ARTHRODESIS POSTERIOR INTERBODY 1 NTRSPC LUMBAR; COMMENT: [...] age to complete this topic Care Teams Operations Asst Relationship Specialty Start Date End Date Reymundo Arana MD [address] [place] [address] [place] [address] PCP - General Internal Medicine 10/07/21
--- OUTSIDE RECORDS SUMMARY | 2025-04-15 10:31 | XMS_ITS | Clinical Summary ---
Author Organization [facility] Address [address] [place] [address] Care Team Providers Care Mutuel Department Manager Name Role Phone Reymundo Arana MD Primary Care Provider [phone] Social History Tobacco Use Types Packs/Day Years [...] age to complete this topic Care Teams Mutuel Department Manager Relationship Specialty Start Date End Date Reymundo Arana MD [address] [place] [address] [place] [address] PCP - General Internal Medicine 12/03/19
== END 2025-04-15 10:35 | disposition home or self-care (01) ==
LOC: HO.HUSH 09:20
PROVIDERS: PCP Internal Medicine; Visit Provider Urology
DX: C61 Malignant neoplasm of prostate (principal); N52.01 Erectile dysfunction due to arterial insufficiency; R35.1 Nocturia; R39.15 Urgency of urination
CPT/HCPCS: 99214

== ENCOUNTER → 2025-04-15 09:20 | Outpatient (BNVA) | payer MEDICARE, SELFPAY | PROVIDERS: PCP Internal Medicine; Visit Provider Urology | DX: C61 Malignant neoplasm of prostate (principal); N52.01 Erectile dysfunction due to arterial insufficiency; R35.1 Nocturia; R39.15 Urgency of urination; Z90.79 Acquired absence of other genital organ(s) | CPT/HCPCS: 99212 ==